=== PATIENT | female | born 1930 | race Caucasian/White ===

== ENCOUNTER 2018-07-18 23:32 | Emergency (ER) | payer MEDICARE, OTHER ==
[~2018-07-18] VITALS: Ht 170.2 cm; Wt 60.3 kg
[~2018-07-18 23:32] MED LIST: ASCO-72 PO; ASPI-482 PO; LEVO25TA4 PO; SIMV40TA3 PO
[2018-07-18 23:34] VITALS: BP 157/67
--- NOTE | 2018-07-18 23:47 | ED.ADGEN ---
Past History Past Medical History: High Cholesterol, Hypothyroid, Other Past Surgical History: Hip Replacement, Hysterectomy, Knee Replacement, Other Alcohol Use: None Drug Use: None Adult General Chief Complaint Chief Complaint Fall HPI HPI 88 years old female who is a detention for rehabilitation due to hip fracture and replacement she was found on the floor will have an accurate time for her fall the patient does not remember how she fell however last time she was seen was 9 PM. Patient complaining of right shoulder pain and right hip pain no any other complaining Review of Systems Review of Systems Constitutional: Denies fever or chills [] Eyes: Denies change in visual acuity, redness, or eye pain [] HENT: Denies nasal congestion or sore throat [] Respiratory: Denies cough or shortness of breath [] Cardiovascular: No additional information not addressed in HPI [] GI: Denies abdominal pain, nausea, vomiting, bloody stools or diarrhea [] : Denies dysuria or hematuria [] Integument: Denies rash or skin lesions [] Neurologic: Denies headache, focal weakness or sensory changes [] Endocrine: Denies polyuria or polydipsia [] All other systems were reviewed and found to be within normal limits, except as documented in this note. Allergies Allergies Allergies Coded Allergies Type Severity Reaction Last Updated Verified Penicillins Adverse Reaction Intermediate 05/22/14 Yes Physical Exam Physical Exam Constitutional: Well developed, well nourished, no acute distress, non-toxic appearance. [] HENT: Normocephalic, atraumatic, bilateral external ears normal, oropharynx moist, no oral exudates, nose normal. [] Eyes: PERRLA, EOMI, conjunctiva normal, no discharge. [] Neck: Normal range of motion, no tenderness, supple, no stridor. [] Cardiovascular:Heart rate regular rhythm, no murmur [] Lungs & Thorax: Bilateral breath sounds clear to auscultation [] Abdomen: Bowel sounds normal, soft, no tenderness, no masses, no pulsatile masses. [] Skin: Warm, dry, no erythema, no rash. [] Back: No tenderness, no CVA tenderness. [] Extremities: Right shoulder tenderness, right hip tenderness Neurologic: Alert and oriented X 3, normal motor function, normal sensory function, no focal deficits noted. [] Psychologic: Affect normal, judgement normal, mood normal. [] EKG EKG [] Radiology/Procedures Radiology/Procedures no acute fracture noticed in shoulder and hip. [] Course & Med Decision Making Course & Med Decision Making Pertinent Labs and Imaging studies reviewed. (See chart for details) no acute fractures noticed, patient will be transferred back to detention for physical therapy and rehabilitation. [] Final Impression Final Impression [] Problems: (1) Fall Qualifiers: Qualified Codes: W19.XXXA - Unspecified fall, initial encounter (2) Contusion of right hip Qualifiers: Qualified Codes: S70.01XA - Contusion of right hip, initial encounter (3) Contusion of shoulder, right Qualifiers: Qualified Codes: S40.011A - Contusion of right shoulder, initial encounter Dragon Disclaimer Dragon Disclaimer This electronic medical record was generated, in whole or in part, using a voice recognition dictation system. SANJIV WILSON MD Jul 18, 2018 23:47
[2018-07-19] MEDS ORDERED: HYDROcodone/APAP 5/325MG 1 TAB TABLET PO ONE (01:00)
--- NOTE | 2018-07-19 01:23 | RAD ---
CT maxillofacial without contrast History: Pain after fall Axial helical images of the face were obtained without contrast. Axial and coronal reconstruction was performed. The nasal septum is mostly midline. The ostiomeatal complexes are narrow but patent. The paranasal sinuses are clear. The visualized osseous structures appear intact. There is soft tissue swelling lateral to the right orbit. Impression: No acute bony abnormality. PQRS Compliance Statement: One or more of the following individualized dose reduction techniques were utilized for this examination: 1. Automated exposure control 2. Adjustment of the mA and/or kV according to patient size 3. Use of iterative reconstruction technique Electronically signed by: Carson Chin III, MD (07/19/2018 1:20 AM) [facility]
--- NOTE | 2018-07-19 02:01 | RAD ---
CT Head W/O Contrast: History: Fall tonight. Pain in head and neck. Bruising to right eye Comparison: none Axial images were obtained without contrast. There is marked diffuse atrophy. There is no mass effect, extraaxial fluid collections or hydrocephalus. There is no gross bleed. Marked, diffuse periventricular and subcortical white matter hypoattenuation is seen. There is no focal loss of lima-white matter distinction to suggest acute ischemia, i.e. stroke. Impression: No acute findings. End impression CT C-Spine without contrast: Clinical History: Fall tonight. Pain in head and neck. Bruising to right eye Technique: Axial helical images of the cervical spine were obtained without contrast, axial coronal and sagittal reconstruction was performed. Findings: There is no loss of vertebral body stature. There is no prevertebral soft tissue swelling. The vertebral bodies are well aligned. The C1-C2 relationship is normal. The visualized osseous structures appear normal. Evaluation of the central canal is limited without contrast. There is multiple posterior disc bulges resulting in flattening of the thecal sac. There does not appear to be gross flattening of the cervical cord. There is marked narrowing of multiple neuroforamen. Impression: No acute findings. Clinical correlation suggested. PQRS Compliance Statement: One or more of the following individualized dose reduction techniques were utilized for this examination: 1. Automated exposure control 2. Adjustment of the mA and/or kV according to patient size 3. Use of iterative reconstruction technique Electronically signed by: Carson Chin III, MD (07/19/2018 1:58 AM) [facility]
--- NOTE | 2018-07-19 09:08 | RAD ---
Right shoulder, 2 views, 07/19/2018: HISTORY: Fall, shoulder pain The bony structures are demineralized. No acute fracture or dislocation is identified. There is mild degenerative change at the AC joint. The subacromial space is narrowed raising the possibility of chronic rotator cuff degeneration/tear. A Port-A-Cath overlies the right upper chest. There are prominent pulmonary markings in the right lung which may be due to fibrosis, although active disease cannot be excluded. Clinical correlation suggested. IMPRESSION: 1. Bony demineralization. 2. Degenerative change. 3. No acute bony abnormality is detected. Electronically signed by: Dudley Hodge MD (07/19/2018 9:05 AM) [facility]
--- NOTE | 2018-07-19 09:13 | RAD ---
Pelvis with right hip, 07/19/2018: HISTORY: Fall, pain Comparison is made to a study from 07/03/2018. The bony structures are demineralized. An internal fixation device is now in place transfixing the intertrochanteric fracture of the right hip evident on the previous exam. The tip of the large screw in the femoral head lies well beneath the articular cortex. There is residual medial displacement of a lesser trochanteric fracture fragment. A bipolar left hip prosthesis remains in place in satisfactory position. There are old healed pubic rami fractures on the left. No new fracture or dislocation is evident. There is moderate degenerative change in the lower lumbar spine. Scattered arterial calcifications are present. IMPRESSION: 1. Demineralization. 2. Internally fixated recent right intertrochanteric fracture. 3. Old healed left pubic bone fractures. 4. Stable left hip prosthesis. 5. No new bony abnormality is detected. Electronically signed by: Dudley Hodge MD (07/19/2018 9:10 AM) [facility]
[2018-07-24] MEDS ORDERED: CYAN-25 PO (16:13)
== END 2018-07-19 03:11 | disposition home or self-care (01) ==
LOC: ER 23:32
DX: S40.011A Contusion of right shoulder, initial encounter (principal); S70.01XA Contusion of right hip, initial encounter; E78.00 Pure hypercholesterolemia, unspecified; E03.9 Hypothyroidism, unspecified; R51 Headache; M54.2 Cervicalgia; Z96.641 Presence of right artificial hip joint; W18.39XA Other fall on same level, initial encounter; Y93.89 Activity, other specified; Y92.89 Other specified places as the place of occurrence of the external cause; Y99.8 Other external cause status
CPT/HCPCS: 70450; 70486; 72125; 73030; 73502; 99284-25

== ENCOUNTER 2018-07-24 08:25 | Inpatient (IN) | payer MEDICARE, OTHER ==
[~2018-07-24] VITALS: Ht 167.6 cm; Wt 69.9 kg
[2018-07-24 09:15] LABS: BASO # 0.1 x10^3/uL (0.0-0.2); BASO % 1 % (0-3); EOS # 0.3 x10^3/uL (0.0-0.7); EOS % 3 % (0-3); HEMATOCRIT 31.6 % (36.0-47.0); HEMOGLOBIN 10.6 g/dL (12.0-15.5); LYMPH # 0.7 x10^3/uL (1.0-4.8); LYMPH % 9 % (24-48); MEAN CORPUSCULAR HEMOGLOBIN 32 pg (25-35); MEAN CORPUSCULAR HGB CONC 34 g/dL (31-37); MEAN CORPUSCULAR VOLUME 95 fL (79-100); MONO # 0.9 x10^3/uL (0.0-1.1); MONO % 11 % (0-9); NEUT # 6.3 x10^3uL (1.8-7.7); NEUT % 77 % (31-73); PLATELET COUNT 526 x10^3/uL (140-400); RED BLOOD COUNT 3.34 x10^6/uL (3.50-5.40); RED CELL DISTRIBUTION WIDTH 17.3 % (11.5-14.5); WHITE BLOOD COUNT 8.2 x10^3/uL (4.0-11.0)
--- NOTE | 2018-07-24 09:15 | PHYS DOC ---
Past History Past Medical History: A-Fib, Anemia, Dementia, GERD, High Cholesterol, Hypertension, Hypothyroid, Other Past Surgical History: Hip Replacement Alcohol Use: None Drug Use: None Adult General Chief Complaint Chief Complaint: ANKLE PROBLEM HPI HPI Patient is a 88 year old female who brought in by EMS because of right ankle pain. Patient had a fall and strike keep fracture 3 weeks ago with hip replacement. Patient is currently in rehabilitation and was started on Levaquin for 2 days ago after chest x-ray showed bronchitis. She also has history of atrial fibrillation and frequent falls and 2 DVTs after her surgery with filter placement. Patient currently taking aspirin. halfway staff reported that patient complaining of right ankle pain since this morning and refused to bear weight. Patient did not have any new injuries. Patient was seen in this emergency room 6 days ago with a fall and injury to right shoulder and right hip with unremarkable x-rays. Patient rated her pain 9/10. Review of Systems Review of Systems Constitutional: Denies fever or chills [] Eyes: Denies change in visual acuity, redness, or eye pain [] HENT: Denies nasal congestion or sore throat [] Respiratory: Denies cough or shortness of breath [] Cardiovascular: No additional information not addressed in HPI [] GI: Denies abdominal pain, nausea, vomiting, bloody stools or diarrhea [] : Denies dysuria or hematuria [] Musculoskeletal: Denies back pain, reports joint pain [] Integument: Denies rash or skin lesions [] Neurologic: Denies headache, focal weakness or sensory changes [] Endocrine: Denies polyuria or polydipsia [] All other systems were reviewed and found to be within normal limits, except as documented in this note. Current Medications Current Medications Current Medications Medications (Trade) Dose Ordered Sig/[facility] Start Time Stop Time Status Last Admin Dose Admin Fentanyl Citrate (Fentanyl 2ml Vial) 25 mcg 1X ONCE 07/24/18 09:30 07/24/18 09:31 Allergies Allergies Allergies Coded Allergies Type Severity Reaction Last Updated Verified Penicillins Adverse Reaction Intermediate 05/22/14 Yes Physical Exam Physical Exam Constitutional: Well nourished, mild acute distress, non-toxic appearance. [] HENT: Normocephalic, old right facial ecchymoses, bilateral external ears normal , oropharynx moist, no oral exudates, nose normal. [] Eyes: PERRLA, EOMI, conjunctiva normal, no discharge. [] Neck: Normal range of motion, no tenderness, supple, no stridor. [] Cardiovascular:Heart rate regular rhythm, no murmur [] Lungs & Thorax: Bilateral breath sounds clear to auscultation [] Abdomen: Bowel sounds normal, soft, no tenderness, no masses, no pulsatile masses. [] Skin: Warm, dry, no erythema, no rash. [] Back: No tenderness, no CVA tenderness. [] Extremities: Right lower extremity DVT increasing of size and mild edema and warm without neurovascular deficit, no ankle tenderness, no cyanosis, no clubbing, ROM intact. Neurologic: Alert and oriented X 2, normal motor function, normal sensory function, no focal deficits noted. [] Psychologic: Affect normal, judgement normal, mood normal. [] Current Patient Data Vital Signs Vital Signs Date Time Temp Pulse Resp B/P (MAP) Pulse Ox O2 Delivery O2 Flow Rate FiO2 07/24/18 08:28 97.9 66 20 98 Room Air EKG EKG [] Radiology/Procedures Radiology/[place] [address] IMAGING REPORT Signed PATIENT: TJ FRANCO ACCOUNT: [id number] : 1930 LOCATION: ER AGE: 88 SEX: F EXAM STATUS: REG ER ORD. PHYSICIAN: SHYAM CANALES MD REASON: cough PROCEDURE: CHEST AP ONLY Portable chest, 07/24/2018: HISTORY: Cough Comparison is made to a study from 07/03/2018. A right Port-A-Cath extends into the superior vena cava. The heart is at the upper limits of normal in size. There is calcific plaquing and tortuosity of the thoracic aorta. Previous studies have shown mild bilateral interstitial opacities suggesting chronic interstitial lung disease. There are mild superimposed peripheral opacities in the left base laterally and laterally in the right mid and lower chest. No pleural fluid is seen. IMPRESSION: Mild patchy pulmonary infiltrates suggesting pneumonia superimposed upon chronic interstitial lung disease. Electronically signed by: Dudley Hodge MD (07/24/2018 9:23 AM) [facility] DICTATED AND SIGNED BY: DUDLEY HODGE MD DATE: 07/24/18916 CC: SHYAM CANALES MD; ETELVINA JOHNSON MD ~ [address] [address] IMAGING REPORT Signed PATIENT: TJ FRANCO ACCOUNT: [id number] : 1930 LOCATION: ER AGE: 88 SEX: F EXAM STATUS: REG ER ORD. PHYSICIAN: SHYAM CANALES MD REASON: pain PROCEDURE: ANKLE RIGHT 3V Right ankle, 3 views, 07/24/2018: HISTORY: Ankle pain, injury The bony structures are demineralized. No acute fracture or dislocation is identified. There is mild degenerative change at the ankle joint. Moderate posterior and inferior calcaneal spurring is present. There is moderate subcutaneous edema. Moderate arterial calcifications are present. IMPRESSION: 1. Demineralization. 2. Degenerative change. 3. No acute bony abnormality is detected. Electronically signed by: Dudley Hodge MD (07/24/2018 9:17 AM) [facility] DICTATED AND SIGNED BY: DUDLEY HODGE MD DATE: 07/24/18914 CC: SHYAM CANALES MD; ETELVINA JOHNSON MD ~ [address] [address] IMAGING REPORT Signed PATIENT: TJ FRANCO ACCOUNT: [id number] : 1930 LOCATION: ER AGE: 88 SEX: F EXAM STATUS: REG ER ORD. PHYSICIAN: SHYAM CANALES MD REASON: pain and edema, h/o DVT PROCEDURE: VENOUS LOWER EXTREMITY RIGHT Examination: Right Lower Extremity Venous Doppler Ultrasound History: History of DVT, history of IVC filter, right hip surgery Comparison: None Procedure: Larios scale, color flow 2D and spectal waveform analysis images are obtained with and without compression in the area of the common femoral vein, superficial femoral vein - femoral vein junction, main femoral vein (superficial femoral vein) and popliteal vein. Veins of the proximal calf are also imaged. Findings: There is echogenicity identified in the distal right femoral vein nonocclusive clot. There is echogenicity/occlusive clot identified in the right popliteal vein. The visualized calf veins on the right are noncompressible likely deep venous thrombosis. No evidence of DVT identified in the common femoral vein and proximal and mid right superficial femoral veins. There is complex appearing fluid collection identified inferior and lateral to the proximal femoral vein measuring 4.9 x 3.6 x 2.2 cm without vascular flow within probably hematoma or complex seroma. IMPRESSION: 1. Nonocclusive deep venous thrombosis identified in the distal right femoral vein. Occlusive deep venous thrombus identified in the right popliteal vein. Deep venous thrombosis in the visualized right calf veins. 2. A 4.9 cm complex fluid collection identified in the soft tissue inferior lateral to the proximal femoral vein could be hematoma or complex seroma. Follow-up to resolution. Electronically signed by: Marcin Stewart MD (07/24/2018 10:43 AM) [place] [id number] DICTATED AND SIGNED BY: MARCIN STEWART MD DATE: 07/24/18 1036 CC: SHYAM CANALES MD; ETELVINA JOHNSON MD ~ Course & Med Decision Making Course & Med Decision Making Pertinent Labs and Imaging studies reviewed. (See chart for details) Evaluation of patient in ER showed 88-year-old female patient brought in from retirement because of complaining of right ankle pain. Patient already diagnosed with 2 DVTs in right lower extremity without taking anticoagulation because of frequent falls. Ankle X-ray did not show fracture. Right lower extremity venous ultrasound showed DVT in femoral and popliteal vein and seroma or hematoma at the site of surgery. Have cough and O2 sats of 95% on room air and chest x-ray showed infiltration. Patient currently taking oral Levaquin and blood culture was obtained and patient started on IV Levaquin and vancomycin. Dr. Johnson accepted admission at 0 945. Dragon Disclaimer Dragon Disclaimer This electronic medical record was generated, in whole or in part, using a voice recognition dictation system. Departure Departure: Impression: Primary Impression: HCAP (healthcare-associated pneumonia) Additional Impressions: Renal insufficiency Anemia Elevated liver enzymes History of DVT (deep vein thrombosis) History of atrial fibrillation Frequent falls Acute right ankle pain History of right hip replacement Seroma after procedure Disposition: 09 ADMITTED INPATIENT (at 0 946) Admitting Physician: Etelvina Johnson (accepted admission at 0945) Condition: IMPROVED Referrals: ETELVINA JOHNSON MD (PCP) Problem Qualifiers SHYAM CANALES MD Jul 24, 2018 09:15
--- NOTE | 2018-07-24 09:20 | RAD ---
Right ankle, 3 views, 07/24/2018: HISTORY: Ankle pain, injury The bony structures are demineralized. No acute fracture or dislocation is identified. There is mild degenerative change at the ankle joint. Moderate posterior and inferior calcaneal spurring is present. There is moderate subcutaneous edema. Moderate arterial calcifications are present. IMPRESSION: 1. Demineralization. 2. Degenerative change. 3. No acute bony abnormality is detected. Electronically signed by: Dudley Hodge MD (07/24/2018 9:17 AM) [facility]
[2018-07-24 09:25] LABS: ALBUMIN 3.2 g/dL (3.4-5.0); ALBUMIN/GLOBULIN RATIO 0.8 (1.0-1.7); CALCIUM 8.8 mg/dL (8.5-10.1); CREATININE 1.2 mg/dL (0.6-1.0); GFR 42.6; MAGNESIUM 2.3 mg/dL (1.8-2.4); POTASSIUM 4.1 mmol/L (3.5-5.1); TOTAL BILIRUBIN 0.6 mg/dL (0.2-1.0); TOTAL PROTEIN 7.1 g/dL (6.4-8.2)
--- NOTE | 2018-07-24 09:27 | RAD ---
Portable chest, 07/24/2018: HISTORY: Cough Comparison is made to a study from 07/03/2018. A right Port-A-Cath extends into the superior vena cava. The heart is at the upper limits of normal in size. There is calcific plaquing and tortuosity of the thoracic aorta. Previous studies have shown mild bilateral interstitial opacities suggesting chronic interstitial lung disease. There are mild superimposed peripheral opacities in the left base laterally and laterally in the right mid and lower chest. No pleural fluid is seen. IMPRESSION: Mild patchy pulmonary infiltrates suggesting pneumonia superimposed upon chronic interstitial lung disease. Electronically signed by: Dudley Hodge MD (07/24/2018 9:23 AM) [facility]
[2018-07-24] MEDS ORDERED: IPRATRPIUM/ALBUTEROL 0.5/2.5MG 3 ML NEBU. NEB ONE (10:00)
--- NOTE | 2018-07-24 10:46 | RAD ---
Examination: Right Lower Extremity Venous Doppler Ultrasound History: History of DVT, history of IVC filter, right hip surgery Comparison: None Procedure: Larios scale, color flow 2D and spectal waveform analysis images are obtained with and without compression in the area of the common femoral vein, superficial femoral vein - femoral vein junction, main femoral vein (superficial femoral vein) and popliteal vein. Veins of the proximal calf are also imaged. Findings: There is echogenicity identified in the distal right femoral vein nonocclusive clot. There is echogenicity/occlusive clot identified in the right popliteal vein. The visualized calf veins on the right are noncompressible likely deep venous thrombosis. No evidence of DVT identified in the common femoral vein and proximal and mid right superficial femoral veins. There is complex appearing fluid collection identified inferior and lateral to the proximal femoral vein measuring 4.9 x 3.6 x 2.2 cm without vascular flow within probably hematoma or complex seroma. IMPRESSION: 1. Nonocclusive deep venous thrombosis identified in the distal right femoral vein. Occlusive deep venous thrombus identified in the right popliteal vein. Deep venous thrombosis in the visualized right calf veins. 2. A 4.9 cm complex fluid collection identified in the soft tissue inferior lateral to the proximal femoral vein could be hematoma or complex seroma. Follow-up to resolution. Electronically signed by: Marcin Monsalve MD (07/24/2018 10:43 AM) [place] [id number]
[2018-07-24] MEDS ORDERED: VANCOMYCIN 1.75 GM in IV NORMAL SALINE 500ML 500 ML IV ONE (11:00)
[2018-07-24] MEDS: IV NORMAL SALINE 1,000ML 1,000 ML IV SCH ×2 (11:01→18:36)
[2018-07-24 15:36] VITALS: BP 141/56
[2018-07-24] MEDS: LIDOCAINE (700MG/PATCH) PATCH. TD SCH (16:00)
[2018-07-24] MEDS ORDERED: PANT40TA3 PO (16:13)
[2018-07-24] MEDS ORDERED: LEVO50TA5 PO (16:13)
[2018-07-24] MEDS ORDERED: FERR325T14 PO (16:13)
[2018-07-24] MEDS ORDERED: POLY17PO5 PO (16:13)
[2018-07-24] MEDS ORDERED: CITA10TA8 PO (16:13)
[2018-07-24] MEDS ORDERED: SENN-80 PO (16:13)
[2018-07-24] MEDS ORDERED: CHOL500016 PO (16:13)
[2018-07-24] MEDS ORDERED: DRON2.5C PO (16:13)
[2018-07-24] MEDS ORDERED: MEMA10TA PO (16:13)
[2018-07-24] MEDS ORDERED: ATOR20TA58 PO (16:13)
[2018-07-24] MEDS ORDERED: CALCIUM CARBONATE PO (16:13)
[2018-07-24] MEDS ORDERED: CYAN10005 PO (16:13)
[2018-07-24] MEDS ORDERED: MULT1TAB52 PO (16:13)
[2018-07-24] MEDS ORDERED: ALBU0.63 NEB (16:21)
[2018-07-24] MEDS ORDERED: MIRT15TA PO (16:21)
[2018-07-24] MEDS ORDERED: TRAM50TA PO (16:21)
[2018-07-24] MEDS ORDERED: GUAI473L15 PO (16:21)
[2018-07-24] MEDS ORDERED: ONDA4TAB7 PO (16:21)
[2018-07-24] MEDS ORDERED: GUAI-108 PO (16:21)
[2018-07-24] MEDS ORDERED: ASPI325T8 PO (16:21)
[2018-07-24] MEDS ORDERED: METO25TA4 PO (16:23)
[2018-07-24] MEDS ORDERED: AMIO200T4 PO (16:23)
[2018-07-24] MEDS ORDERED: LISI10TA2 PO (16:23)
[2018-07-24] MEDS: PATCH REMOVAL. MC SCH (16:47)
[2018-07-24] MEDS ORDERED: traMADol 50 MG TABLET PO PRN (18:00)
[2018-07-24] MEDS ORDERED: NON FORMULARY ITEM (Albuterol Sulfate (Albuterol Sulfate Neb Soln) 1 VIAL) NEB PRN (18:00)
[2018-07-24 18:09] LABS: BILIRUBIN,URINE NEG (NEG); CLARITY,URINE CLEAR; COLOR,URINE YELLOW; GLUCOSE,URINE NEG (NEG); UROBILINOGEN,URINE 0.2 mg/dL (0.2 mg/dL)
[2018-07-24 18:10] LABS: BACTERIA,URINE FEW /HPF (0-FEW); NITRITE,URINE NEG (NEG); RBC,URINE OCC /HPF (0-2); SQUAMOUS EPITHELIAL CELL,UR FEW /LPF; WBC,URINE OCC /HPF (0-4)
[2018-07-24] MEDS ORDERED: ALBUTEROL SULFATE 2.5 MG/3 ML NEBU. NEB PRN ×2 (18:15→18:30)
[2018-07-24] MEDS ORDERED: VANCOMYCIN PER PHARMACY MC PRN (18:15)
[2018-07-24] MEDS ORDERED: ONDANSETRON ODT 4 MG TAB.RAPDIS PO SCH (18:30)
--- NOTE | 2018-07-24 18:54 | HP ---
ADMIT DATE: 07/24/2018 HISTORY OF PRESENT ILLNESS: The patient is an 88-year-old female patient, a resident at [facility], was brought to the Emergency Room because of right ankle pain. She apparently had a fall and strike about 3 weeks ago for which she underwent hip replacement. She is currently at [facility] and was started on Levaquin 2 days ago for what seemed to be pneumonia on a chest x-ray done there. She apparently has a history of atrial fibrillation, frequent falls and 2 DVTs after her surgery. She underwent an inferior vena cava filter placement. She is on aspirin. Nursing staff reported that the patient was complaining of right ankle pain since the morning and refused to bear weight. She did not have any injuries. She was seen in the Emergency Room about 6 days ago with a fall and injury to the right shoulder and right hip with unremarkable x-rays. She rated her pain this morning as 9/10. She apparently was extensively investigated in the Emergency Room and she had had a chest x-ray, which showed that she has mild patchy pulmonary infiltrate suggesting pneumonia superimposed upon chronic interstitial lung disease. X-ray of her right ankle joint showed that she has marked demineralization, degenerative changes with no acute bony abnormalities detected. She did have right lower extremity venous Doppler ultrasound, which showed that she has nonocclusive deep venous thrombosis identified in the distal right femoral vein, occlusive deep venous thrombus identified in the right popliteal vein, deep venous thrombosis in the visualized right calf veins. She also has a 4.9 cm complex fluid collection identified in the soft tissue inferior and lateral to the proximal femoral vein, could be a hematoma or complex seroma. The patient was admitted to be treated for healthcare-associated pneumonia. PAST MEDICAL HISTORY: Significant for hypertension, hyperlipidemia, atrial fibrillation, rate controlled, not anticoagulated. She is known to have hypothyroidism, osteoarthritis and anemia as well as dementia. PAST SURGICAL HISTORY: Significant for left hip surgery, right hip nailing, right inguinal hernia repair, bladder sling, and left knee replacement. FAMILY HISTORY: Noncontributory. SOCIAL HISTORY: She is . Her has recently. She is currently residing at [facility]. She does not smoke, drink alcohol or use recreational drugs. ALLERGIES: She is allergic to PENICILLIN, SULFAMETHOXAZOLE AND TRIMETHOPRIM. MEDICATIONS: She is currently on following medications: She is on albuterol sulfate by nebulizer 4 times a day, ferrous sulfate 325 mg daily, amiodarone 200 mg once a day, atorvastatin 20 mg at bedtime, metoprolol tartrate 25 mg once a day, lisinopril 10 mg once a day, aspirin 81 mg once a day and aspirin 325 mg twice a day, tramadol 50 mg every 6 hours, Celexa 10 mg once a day, mirtazapine 22.5 mg daily. She is on Namenda 10 mg twice a day and guaifenesin/codeine phosphate cough syrup 5 mL every 4 hours. She is on Mucinex extended release with dextromethorphan twice a day, polyethylene glycol 17 grams daily, senna 1 tablet once a day, ondansetron 4 mg every 6 hours, dronabinol 2.5 mg twice a day, Protonix 40 mg daily, levothyroxine sodium 50 mcg once a day, cyanocobalamin 1000 mcg daily, ascorbic acid 500 mg once a day, cholecalciferol 5000 international units once a day, multivitamin 1 tablet once a day, and calcium carbonate 1500 mg p.o. daily. REVIEW OF SYSTEMS: As per history of present illness. PHYSICAL EXAMINATION: GENERAL: On arrival to the Emergency Room, the patient looked pale, but no jaundice, cyanosis, or thyromegaly. No jugular venous distension. No limb edema. VITAL SIGNS: Her heart rate was 66, blood pressure was 167/53, temperature was 97.9, respiratory rate 20, and oxygen saturation was 98% on room air. HEAD, EYES, EARS, NOSE AND THROAT: Showed normocephalic, atraumatic. NECK: Supple. HEART: Showed normal first and second sounds. No gallop, rub or murmur. CHEST: Clear to auscultation. No crepitation or rhonchi. ABDOMEN: Distended, soft, nontender. NEUROLOGIC: She is awake, alert, responding appropriately. All cranial nerves intact. EXTREMITIES: She moves all extremities without difficulty. SKIN: She has bruises on her right side of the face. LABORATORY DATA: This morning showed a serum sodium 134, potassium 4.1, chloride 98, bicarbonate 26, anion gap of 10, BUN 25, creatinine 1.2, estimated GFR was 42 mL per minute. Her glucose 106, calcium was 8.8, magnesium was 2.3. Total bilirubin normal. AST, ALT, alkaline phosphatase are elevated. Her beta natriuretic peptide was 761. Total protein was 7.1, albumin was 3.2. Her white cell count was 8200, hemoglobin 10.6, hematocrit 31.6, MCV 95, and platelet count 526,000. ASSESSMENT: This is an 88-year-old female patient, a resident at [facility] who was admitted with pain in her right ankle joint. X-ray showed no evidence of fracture or dislocation. Chest x-ray showed that she has mild patchy pulmonary infiltrate suggesting pneumonia superimposed upon chronic interstitial lung disease. She is known to have right lower extremity deep vein thrombosis for which she has an inferior vena cava filter, continued with DVT prophylaxis with aspirin 325 mg twice a day. PLAN: Plan is to continue with IV antibiotic for healthcare-associated pneumonia, as she is allergic to PENICILLIN. Continue IV levofloxacin as well as vancomycin. We will resume all her home medication. Her liver enzymes are abnormal, so I will hold her statins. We will repeat all her lab work tomorrow. We will consult physical and occupational therapy, as she has had surgery on her hip on 07/03/2018. JOHN MAZARIEGOS MD DR: CRISTO/dayan JOB#: [id number] / [id number]
[2018-07-24 19:07] VITALS: BP 140/63
[2018-07-24] MEDS: LACTOBACILLUS RHAMNOSUS GG 1 CAPSULE. PO SCH (19:41)
[2018-07-24] MEDS: METOPROLOL TART IMMED RELEASE 25 MG TABLET PO SCH (19:41)
[2018-07-24] MEDS: MEMANTINE 10 MG TABLET. PO SCH (20:45)
[2018-07-24] MEDS ORDERED: ASPIRIN 325 MG TABLET PO SCH (21:00)
[2018-07-24] MEDS: MEROPENEM 500 MG in IV NORMAL SALINE 50ML 50 ML IV SCH (21:41)
[2018-07-24 22:46] VITALS: BP 147/87
[2018-07-25] MEDS: IV NORMAL SALINE 1,000ML 1,000 ML IV SCH (01:48)
[2018-07-25] MEDS: MEROPENEM 500 MG in IV NORMAL SALINE 50ML 50 ML IV SCH ×3 (05:03→22:01)
[2018-07-25] MEDS: LEVOTHYROXINE 50 MCG TABLET PO SCH (05:04)
[2018-07-25 05:16] VITALS: BP 152/64
[2018-07-25 06:56] LABS: ALBUMIN 2.5 g/dL (3.4-5.0); ALBUMIN/GLOBULIN RATIO 0.8 (1.0-1.7); CALCIUM 7.9 mg/dL (8.5-10.1); CREATININE 0.9 mg/dL (0.6-1.0); GFR 59.4; POTASSIUM 3.8 mmol/L (3.5-5.1); TOTAL BILIRUBIN 0.6 mg/dL (0.2-1.0); TOTAL PROTEIN 5.6 g/dL (6.4-8.2)
[2018-07-25 07:00] VITALS: BP 122/53
[2018-07-25 07:01] LABS: BASO % 1 % (0-3); EOS # 0.2 x10^3/uL (0.0-0.7); EOS % 3 % (0-3); HEMATOCRIT 25.8 % (36.0-47.0); HEMOGLOBIN 8.7 g/dL (12.0-15.5); LYMPH % 15 % (24-48); MEAN CORPUSCULAR HEMOGLOBIN 32 pg (25-35); MEAN CORPUSCULAR HGB CONC 34 g/dL (31-37); MEAN CORPUSCULAR VOLUME 94 fL (79-100); MONO # 0.7 x10^3/uL (0.0-1.1); MONO % 10 % (0-9); NEUT % 72 % (31-73); PLATELET COUNT 405 x10^3/uL (140-400); RED BLOOD COUNT 2.73 x10^6/uL (3.50-5.40); WHITE BLOOD COUNT 6.9 x10^3/uL (4.0-11.0)
[2018-07-25] MEDS: SENNOSIDES 8.6 MG TABLET PO SCH (09:00)
[2018-07-25] MEDS: ASPIRIN 325 MG TABLET PO SCH (09:06)
[2018-07-25] MEDS: POLYETHYLENE GLYCOL 3350 17 GM PACKET. PO SCH (09:06)
[2018-07-25] MEDS: LISINOPRIL 10 MG TABLET PO SCH (09:08)
[2018-07-25] MEDS: PANTOPRAZOLE 40 MG TABLET. PO SCH (09:08)
[2018-07-25] MEDS: ASCORBIC ACID 500 MG TABLET PO SCH (09:08)
[2018-07-25] MEDS: LACTOBACILLUS RHAMNOSUS GG 1 CAPSULE. PO SCH ×2 (09:08→22:01)
[2018-07-25] MEDS: CHOLECALCIFEROL (VITAMIN D3) 1,000 UNIT TABLET PO SCH (09:08)
[2018-07-25] MEDS: METOPROLOL TART IMMED RELEASE 25 MG TABLET PO SCH ×2 (09:09→22:01)
[2018-07-25] MEDS: AMIODARONE HCL 200 MG TABLET PO SCH (09:10)
[2018-07-25] MEDS: FERROUS SULFATE 325 MG TABLET. PO SCH (09:14)
[2018-07-25] MEDS: MEMANTINE 10 MG TABLET. PO SCH ×2 (09:15→22:02)
[2018-07-25] MEDS: MIRTAZAPINE 15 MG TABLET PO SCH (09:15)
[2018-07-25] MEDS: LIDOCAINE (700MG/PATCH) PATCH. TD SCH (09:15)
[2018-07-25] MEDS: CALCIUM CARBONATE 500 MG TABLET PO SCH (09:16)
[2018-07-25] MEDS: MULTIVITAMIN with MINERAL TABLET. PO SCH (09:16)
[2018-07-25] MEDS: CYANOCOBALAMIN (VITAMIN B-12) 1,000 MCG TABLET. PO SCH (09:16)
[2018-07-25] MEDS: CITALOPRAM 10 MG TABLET. PO SCH (09:16)
[2018-07-25] MEDS: DRONABINOL 2.5 MG CAPSULE PO SCH ×2 (11:53→17:36)
[2018-07-25 12:00] VITALS: BP 120/51
[2018-07-25] MEDS ORDERED: VANCOMYCIN 1 GM in IV NORMAL SALINE 250ML 250 ML IV SCH (15:00)
[2018-07-25 15:45] VITALS: BP 145/74
[2018-07-25] MEDS ORDERED: ONDANSETRON ODT 4 MG TAB.RAPDIS PO PRN (18:30)
[2018-07-25 19:20] VITALS: BP 137/45
[2018-07-25] MEDS: PATCH REMOVAL. MC SCH (21:00)
[2018-07-25 22:43] VITALS: BP 133/78
[2018-07-26 03:23] VITALS: BP 149/70
[2018-07-26] MEDS: LEVOTHYROXINE 50 MCG TABLET PO SCH (05:33)
[2018-07-26] MEDS: MEROPENEM 500 MG in IV NORMAL SALINE 50ML 50 ML IV SCH ×3 (05:33→22:28)
[2018-07-26 05:37] VITALS: BP 144/70
--- NOTE | 2018-07-26 06:08 | PN ---
DATE: 07/25/2018 SUBJECTIVE: The patient is sitting in her recliner, definitely more awake and alert. Apparently, she has eaten more today and has managed to walk with a walker for short distance within her room. OBJECTIVE: GENERAL: On examining her, she was pale, no jaundice, cyanosis, or thyromegaly. No jugular venous distension. No limb edema. VITAL SIGNS: Her heart rate was 63, blood pressure was 120/50. Her temperature was 98.8, respiratory rate was 18 and oxygen saturation was 98%. HEAD, EYES, EARS, NOSE AND THROAT: Normocephalic, atraumatic. NECK: Supple. HEART: Showed normal first and second sounds. No gallop, rub or murmur. CHEST: Clear to auscultation. Anteriorly, she has crepitation, more on the right side compared to the left. I could not appreciate any rhonchi. ABDOMEN: Distended, soft, and nontender. No guarding or rigidity. No organomegaly. Hernial orifice intact. Bowel sounds normal. NEUROLOGIC: She was definitely more awake, alert, responding appropriately. Cranial nerves intact. She moves extremities without difficulty. Her intake and output are incompletely recorded. LABORATORY DATA: As of this morning showed a white cell count of 6900, hemoglobin 8.7, hematocrit 25.8, MCV 94 and platelet count of 405,000. Her chemistry showed a serum sodium 139, potassium 3.8, chloride 105, bicarbonate 25, anion gap of 9, BUN 15, creatinine 0.9, estimated GFR was 59 mL per minute. Her glucose was 128, calcium was 7.9. Total bilirubin, AST, ALT, alkaline phosphatase elevated, but trending down. Her total protein was 5.6, albumin was 2.5 and urinalysis was essentially unremarkable. Her chest x-ray, she has mild patchy pulmonary infiltrate suggesting pneumonia superimposed upon chronic interstitial lung disease. ASSESSMENT: 1. Healthcare-associated pneumonia for which she continues to be on antibiotic in the form of vancomycin as well as meropenem as she is allergic to penicillin. 2. She has a right heel deep tissue injury. 3. The patient has right hip fracture, status post open reduction and internal fixation, right lower extremity deep vein thrombosis, status post IVC filter. She has transaminitis, the cause of which is not clear; however, I did discontinue her statins and the liver enzymes are trending down. Her hemoglobin and hematocrit dropped down from 10.6 and 31 to 8.7 and 25, which could be dilutional. PLAN: The plan is to continue with IV antibiotic, continue with Marinol as an appetite stimulant. Continue with the aspirin 325 mg twice a day for DVT prophylaxis. Continue with physical and occupational therapy. JOHN MAZARIEGOS MD DR: CRISTO/dayan JOB#: [id number] / [id number]
[2018-07-26 06:45] LABS: BASO # 0.1 x10^3/uL (0.0-0.2); BASO % 1 % (0-3); EOS # 0.4 x10^3/uL (0.0-0.7); EOS % 6 % (0-3); HEMATOCRIT 26.1 % (36.0-47.0); HEMOGLOBIN 8.7 g/dL (12.0-15.5); LYMPH % 14 % (24-48); MEAN CORPUSCULAR HEMOGLOBIN 32 pg (25-35); MEAN CORPUSCULAR HGB CONC 34 g/dL (31-37); MEAN CORPUSCULAR VOLUME 94 fL (79-100); MONO # 0.6 x10^3/uL (0.0-1.1); MONO % 9 % (0-9); NEUT # 5.1 x10^3uL (1.8-7.7); NEUT % 71 % (31-73); PLATELET COUNT 354 x10^3/uL (140-400); RED BLOOD COUNT 2.77 x10^6/uL (3.50-5.40); RED CELL DISTRIBUTION WIDTH 17.3 % (11.5-14.5); WHITE BLOOD COUNT 7.2 x10^3/uL (4.0-11.0)
[2018-07-26 06:57] LABS: ALBUMIN 2.3 g/dL (3.4-5.0); ALBUMIN/GLOBULIN RATIO 0.9 (1.0-1.7); CALCIUM 7.7 mg/dL (8.5-10.1); CREATININE 0.6 mg/dL (0.6-1.0); GFR 94.8; POTASSIUM 4.4 mmol/L (3.5-5.1); TOTAL BILIRUBIN 0.5 mg/dL (0.2-1.0)
[2018-07-26] MEDS: CHOLECALCIFEROL (VITAMIN D3) 1,000 UNIT TABLET PO SCH (08:58)
[2018-07-26] MEDS: LISINOPRIL 10 MG TABLET PO SCH (08:58)
[2018-07-26] MEDS: CYANOCOBALAMIN (VITAMIN B-12) 1,000 MCG TABLET. PO SCH (08:58)
[2018-07-26] MEDS: MULTIVITAMIN with MINERAL TABLET. PO SCH (08:59)
[2018-07-26] MEDS: METOPROLOL TART IMMED RELEASE 25 MG TABLET PO SCH ×2 (08:59→21:00)
[2018-07-26] MEDS: LACTOBACILLUS RHAMNOSUS GG 1 CAPSULE. PO SCH ×2 (08:59→22:27)
[2018-07-26] MEDS: SENNOSIDES 8.6 MG TABLET PO SCH (08:59)
[2018-07-26] MEDS: ASPIRIN 325 MG TABLET PO SCH (08:59)
[2018-07-26] MEDS: CALCIUM CARBONATE 500 MG TABLET PO SCH (08:59)
[2018-07-26] MEDS: PANTOPRAZOLE 40 MG TABLET. PO SCH (08:59)
[2018-07-26] MEDS: ASCORBIC ACID 500 MG TABLET PO SCH (08:59)
[2018-07-26] MEDS: FERROUS SULFATE 325 MG TABLET. PO SCH ×2 (08:59→22:28)
[2018-07-26] MEDS: POLYETHYLENE GLYCOL 3350 17 GM PACKET. PO SCH (09:00)
[2018-07-26] MEDS: MIRTAZAPINE 15 MG TABLET PO SCH (09:00)
[2018-07-26] MEDS: AMIODARONE HCL 200 MG TABLET PO SCH (09:00)
[2018-07-26] MEDS: CITALOPRAM 10 MG TABLET. PO SCH (09:01)
[2018-07-26] MEDS: MEMANTINE 10 MG TABLET. PO SCH ×2 (09:01→22:28)
[2018-07-26] MEDS: LIDOCAINE (700MG/PATCH) PATCH. TD SCH (09:02)
[2018-07-26 11:17] VITALS: BP 157/84
[2018-07-26] MEDS: DRONABINOL 2.5 MG CAPSULE PO SCH ×2 (11:33→16:41)
--- NOTE | 2018-07-26 13:47 | RAD ---
EXAM: CHEST 1 VIEW History: Shortness of breath, cough COMPARISON: 07/24/2018 TECHNIQUE: Single portable radiograph of the chest FINDINGS: The cardiac silhouette is unremarkable. Right-sided Port-A-Cath is identified. There is mild prominent appearing bilateral peripheral interstitial lung markings likely chronic interstitial changes similar to prior exam. IMPRESSION: Mild prominent appearing bilateral interstitial lung markings particularly in the periphery of the lungs probably chronic interstitial changes similar to prior exam Electronically signed by: Marcin Monsalve MD (07/26/2018 1:44 PM) [place] [id number]
[2018-07-26 16:19] VITALS: BP 166/58
--- NOTE | 2018-07-26 20:27 | PN ---
DATE: 07/26/2018 SUBJECTIVE: The patient is sitting comfortably eating her lunch, in no apparent distress. On questioning her, she denied any complaints. She said that she has felt very well. Her oxygen saturation was 97% on room air. However, the nursing staff states that she takes 2-person assist to get her up and walk. OBJECTIVE: GENERAL: When I examined her this afternoon, she looked pale. No jaundice, cyanosis, or thyromegaly. No jugular venous distension. No lower limb edema. VITAL SIGNS: Her heart rate was 58, blood pressure was 157/84, temperature was 98.5, respiratory rate was 18, and oxygen saturation was 95% on 2 L of oxygen. HEAD, EYES, EARS, NOSE, AND THROAT: Showed normocephalic, atraumatic. NECK: Supple. HEART: Showed normal first and second sounds. No gallop, rub, or murmur. CHEST: Clear to auscultation. No crepitation or rhonchi. ABDOMEN: Distended, soft, nontender. NEUROLOGIC: She was somewhat hard of hearing, but otherwise all cranial nerves were intact. She moved extremities without difficulty, however she required 2-person assist to get out of the bed to walk. LABORATORY DATA: Her lab work this morning showed white cell count 7200, hemoglobin 8.7, hematocrit 26, MCV 94, and platelet count 354,000. Her chemistry showed serum sodium 136, potassium 4.4, chloride 104, bicarbonate 21, anion gap of 11, BUN 14, creatinine 0.6, estimated GFR was 95 mL/min. Her glucose was 104, calcium was 7.7. Total bilirubin is normal. AST, ALT, alkaline phosphatase elevated, but trending down. Her total protein was 5 g/dL and albumin was only 2.3. So far, her blood cultures are negative. ASSESSMENT: 1. Healthcare-associated pneumonia, for which she continues to be on antibiotic in the form of vancomycin as well as meropenem. SHE IS ALLERGIC TO PENICILLIN. 2. She has right heel deep tissue injury. 3. The patient has right hip fracture, status post open reduction and internal fixation. 4. Right lower extremity deep vein thrombosis, status post IVC filter. 5. Transaminitis, cause of which is not clear. I did discontinue her statin and liver enzymes are trending down. 6. Her hemoglobin and hematocrit are trending down, however these were stable over the last 48 hours. PLAN: My plan is to discontinue vancomycin as the blood culture was negative. Continue with meropenem. I will order a chest x-ray. We we will decide on further management accordingly. JOHN MAZARIEGOS MD DR: CRISTO/dayan JOB#: [id number] / [id number]
[2018-07-26] MEDS: PATCH REMOVAL. MC SCH (21:00)
[2018-07-26 22:45] VITALS: BP 144/66
[2018-07-27] MEDS: MEROPENEM 500 MG in IV NORMAL SALINE 50ML 50 ML IV SCH (06:00)
[2018-07-27] MEDS: LEVOTHYROXINE 50 MCG TABLET PO SCH (06:29)
[2018-07-27 07:00] VITALS: BP 148/64
[2018-07-27 07:25] VITALS: BP 148/61
[2018-07-27] MEDS: METOPROLOL TART IMMED RELEASE 25 MG TABLET PO SCH (08:00)
[2018-07-27] MEDS: CHOLECALCIFEROL (VITAMIN D3) 1,000 UNIT TABLET PO SCH (08:01)
[2018-07-27] MEDS: LISINOPRIL 10 MG TABLET PO SCH (08:01)
[2018-07-27] MEDS: MULTIVITAMIN with MINERAL TABLET. PO SCH (08:01)
[2018-07-27] MEDS: CYANOCOBALAMIN (VITAMIN B-12) 1,000 MCG TABLET. PO SCH (08:01)
[2018-07-27] MEDS: ASPIRIN 325 MG TABLET PO SCH (08:01)
[2018-07-27] MEDS: AMIODARONE HCL 200 MG TABLET PO SCH (08:01)
[2018-07-27] MEDS: FERROUS SULFATE 325 MG TABLET. PO SCH (08:02)
[2018-07-27] MEDS: CITALOPRAM 10 MG TABLET. PO SCH (08:02)
[2018-07-27] MEDS: SENNOSIDES 8.6 MG TABLET PO SCH (08:02)
[2018-07-27] MEDS: MIRTAZAPINE 15 MG TABLET PO SCH (08:02)
[2018-07-27] MEDS: ASCORBIC ACID 500 MG TABLET PO SCH (08:02)
[2018-07-27] MEDS: PANTOPRAZOLE 40 MG TABLET. PO SCH (08:02)
[2018-07-27] MEDS: LACTOBACILLUS RHAMNOSUS GG 1 CAPSULE. PO SCH (08:02)
[2018-07-27] MEDS: CALCIUM CARBONATE 500 MG TABLET PO SCH (08:02)
[2018-07-27] MEDS: POLYETHYLENE GLYCOL 3350 17 GM PACKET. PO SCH (08:03)
[2018-07-27] MEDS: MEMANTINE 10 MG TABLET. PO SCH (08:03)
[2018-07-27] MEDS: LIDOCAINE (700MG/PATCH) PATCH. TD SCH (08:03)
[2018-07-27 11:45] VITALS: BP 117/62
[2018-07-27] MEDS: DRONABINOL 2.5 MG CAPSULE PO SCH (11:52)
--- NOTE | 2018-07-28 00:51 | DS ---
DATE OF DISCHARGE: 07/27/2018 HOSPITAL COURSE: The patient is an 88-year-old female patient, a resident at [place], who was admitted through the Emergency Room with pain in her right ear, right ankle joint; however, on extensive evaluation in the Emergency Room, she has had chest x-ray that showed she has mild patchy pulmonary infiltrate suggesting pneumonia superimposed on chronic interstitial lung disease. X-ray of her right ankle showed marked demineralization, degenerative changes, no acute bony abnormalities. She had left and right lower extremity venous ultrasound, which showed that she has nonocclusive deep vein thrombus identified in the distal right femoral vein and occlusive deep venous thrombus in the right popliteal vein. The patient was admitted and treated for healthcare-associated pneumonia. SHE IS ALLERGIC TO PENICILLIN. She was treated with IV vancomycin as well as meropenem and she did actually very well. She continued to have some cough, but she has been afebrile, hemodynamically stable. Her white cell count was normal and therefore, a decision was made. She is more awake, alert, continued to require 2-person assist for transfer from bed to chair or to walk and therefore, a decision was made to discharge her back to [facility] to continue the process of rehabilitation. PHYSICAL EXAMINATION: GENERAL: When I saw her this afternoon, she looked well and was clearly in no apparent respiratory distress. She was pale, but no jaundice, cyanosis, or thyromegaly. No jugular venous distension. No limb edema. VITAL SIGNS: Her heart rate was 69, blood pressure was 117/62, temperature was 98, respiratory rate was 18 and oxygen saturation was 95%. HEAD, EYES, EARS, NOSE AND THROAT: Showed normocephalic, atraumatic. NECK: Supple. HEART: Showed normal first and second heart sounds. No gallop, rub or murmur. CHEST: Clear to auscultation. No crepitation or rhonchi. ABDOMEN: Distended, soft, nontender. NEUROLOGIC: She is definitely more awake, alert, responding appropriately. Cranial nerves intact. She moves extremities without difficulty. She ambulates with a walker with assistance. Her intake over the last 24 hours was 1020, output was 250. LABORATORY DATA: Her lab work showed a white cell count was 7200, hemoglobin 8.7, hematocrit 26, MCV 94 and platelet count of 354,000. Her chemistry showed a serum sodium 136, potassium 4.4, chloride 104, bicarbonate 21, anion gap of 11, BUN 14, creatinine 0.6, estimated GFR was 94 mL per minute. Her glucose was 104, calcium was 7.7. Her bilirubin is normal. AST, ALT, and alkaline phosphatase are elevated, but trending down after I held her simvastatin. She was discharged to [place] to continue with the Levaquin 750 mg every 48 hours x 3 doses. Continue with all other medications. We will hold her simvastatin as she has markedly elevated liver enzymes. FINAL DISCHARGE DIAGNOSES: Healthcare-associated pneumonia; right hip fracture, status post open reduction and internal fixation; and atrial fibrillation. JOHN MAZARIEGOS MD DR: CRISTO/dayan JOB#: [id number] / [id number]
[2018-07-28] MEDS ORDERED: levoFLOXacin 750 MG TABLET PO SCH (06:00)
[2018-08-02] MEDS ORDERED: CITALOPRAM 10 MG TABLET. PO SCH (09:00)
== END 2018-07-27 15:33 | DRG 193 ==
LOC: ER 08:25 → ICU 11:53
PROVIDERS: ADMIT Internal Medicine; ATTEND Internal Medicine
DX: J18.9 Pneumonia, unspecified organism (principal); N17.0 Acute kidney failure with tubular necrosis; I82.411 Acute embolism and thrombosis of right femoral vein; I82.431 Acute embolism and thrombosis of right popliteal vein; D64.9 Anemia, unspecified; I10 Essential (primary) hypertension; M19.90 Unspecified osteoarthritis, unspecified site; E03.9 Hypothyroidism, unspecified; Z96.641 Presence of right artificial hip joint; Z96.652 Presence of left artificial knee joint; E78.00 Pure hypercholesterolemia, unspecified; E78.5 Hyperlipidemia, unspecified; F03.90 Unspecified dementia, unspecified severity, without behavioral disturbance, psychotic disturbance, mood disturbance, and anxiety; I48.91 Unspecified atrial fibrillation; K21.9 Gastro-esophageal reflux disease without esophagitis; N28.9 Disorder of kidney and ureter, unspecified; R29.6 Repeated falls; Z79.899 Other long term (current) drug therapy; Z79.82 Long term (current) use of aspirin; Z86.718 Personal history of other venous thrombosis and embolism; Z88.0 Allergy status to penicillin
CPT/HCPCS: 36415; 71045; 73610; 80053; 81001; 83605; 83735; 83880; 85025; 87040; 93971; 94640; 96365; 96375; J1956; J2185; J3010; J3370; J7040; J7050; J7613; J7620; Q0167; 97110; 97530; 99285-25; J7030

== ENCOUNTER 2018-10-11 00:24 | Inpatient (IN) | payer MEDICARE, OTHER ==
[~2018-10-11] VITALS: Ht 167.6 cm; Wt 64.9 kg
[~2018-10-11 00:24] MED LIST changes: +ALBU0.63 NEB; +AMIO200T4 PO; +ASPI325T8 PO; +ATOR20TA58 PO; +CALCIUM CARBONATE PO; +CHOL500016 PO; +CITA10TA8 PO; +CYAN10005 PO; +DRON2.5C PO; +FERR325T14 PO; +GUAI-108 PO; +GUAI473L15 PO; +LEVO50TA5 PO; +LISI10TA2 PO; +MEMA10TA PO; +METO25TA4 PO; +MIRT15TA PO; +MULT1TAB52 PO; +ONDA4TAB7 PO; +PANT40TA3 PO; +POLY17PO5 PO; +SENN-80 PO; +TRAM50TA PO
--- NOTE | 2018-10-11 00:37 | PHYS DOC ---
Past History Past Medical History: A-Fib, Anemia, Dementia, GERD, High Cholesterol, Hypertension, Hypothyroid, Other Past Surgical History: Hip Replacement Alcohol Use: None Drug Use: None Adult General Chief Complaint Chief Complaint: HIP PAIN HPI HPI Patient is a 88-year-old female sent from the [facility] where she resides due to altered mental status after a fall. She had some right hip pain and received an x-ray at the facility that was interpreted as negative. The report was sent with the patient to the emergency department. History is limited from the patient due to her altered mental status and a baseline history of dementia.[] Review of Systems Review of Systems Unable to obtain due to dementia All other systems were reviewed and found to be within normal limits, except as documented in this note. Allergies Allergies Allergies Coded Allergies Type Severity Reaction Last Updated Verified sulfamethoxazole Allergy Severe 07/24/18 Yes trimethoprim Allergy Severe 07/24/18 Yes Penicillins Adverse Reaction Intermediate 05/22/14 Yes Physical Exam Physical Exam Constitutional: Well developed, well nourished, no acute distress, non-toxic appearance. [] HENT: Normocephalic, atraumatic, bilateral external ears normal, TMs are clear, no blood or fluid, oropharynx moist, no oral exudates, nose normal. [] Eyes: PERRLA, EOMI, conjunctiva normal, no discharge. [] Neck: Normal range of motion, no tenderness, supple, no stridor. [] Cardiovascular:Heart rate regular rhythm, no murmur [] Lungs & Thorax: Bilateral breath sounds clear to auscultation [] Abdomen: Bowel sounds normal, soft, no tenderness, no masses, no pulsatile masses. [] Skin: Warm, dry, no erythema, no rash. [] Back: No tenderness, no CVA tenderness. [] Extremities: No tenderness, no cyanosis, no clubbing, ROM intact, no edema. [] Neurologic: Alert and oriented X 1, normal motor function, normal sensory function, no focal deficits noted. [] Psychologic: Affect normal, mood normal. [] EKG EKG EKG shows a sinus rhythm, left axis at -32, QTC of 453 ms, no ST elevations. Interpreted by me at 0048[] Radiology/Procedures Radiology/Procedures Chest x-ray shows no evidence of an infiltrate, no effusion, no pneumothorax PROCEDURE: CT HEAD AND CERVICAL SPINE WO Examination: CT head and cervical spine without contrast CT HEAD INDICATION: Fall COMPARISON: None Available. Exposure: One or more of the following individualized dose reduction techniques were utilized for this examination: 1. Automated exposure control 2. Adjustment of the mA and/or kV according to patient size 3. Use of iterative reconstruction technique TECHNIQUE: 5 mm contiguous axial images were obtained from the skull base to the vertex in both bone and soft tissue algorithm. FINDINGS: Moderate bilateral periventricular white matter hypodensities likely chronic small vessel ischemic disease. Small old lacunar infarct identified in the left basal ganglia . No evidence of acute intracranial hemorrhage. No extra-axial fluid collections. No mass effect or midline shift. Ventricular size is appropriate. Basal cisterns are patent. No fractures identified.Larios-white differentiation is preserved.Globes and orbits are within normal limits. Paranasal sinuses and mastoid air cells are clear. IMPRESSION: No acute intracranial findings CT CERVICAL SPINE INDICATION: Fall COMPARISON: None Available. Technique: 2.5 mm contiguous axial images were obtained from the skull base through the cervicothoracic junction in both bone and soft tissue algorithm. Additional sagittal and coronal reconstructions were also performed. FINDINGS: Vertebral body height and alignment are maintained. Cervical lordosis is preserved. The lateral masses of C1 are aligned upon C2. No fractures identified. The bony canal is patent throughout. Moderate intervertebral disc height loss identified in cervical spine particularly at C4-C5, C5-C6, C6-C7 vertebral levels with small anterior and posterior osteophyte formation. The paraspinous soft tissues are unremarkable. Visualized intracranial contents are unremarkable. Lung apices are clear. IMPRESSION: 1. No acute fracture of the cervical spine. Correlate clinically. 2. Moderate degenerative changes cervical spine. [] Course & Med Decision Making Course & Med Decision Making Pertinent Labs and Imaging studies reviewed. (See chart for details) ED course: Patient arrived, was placed in bed, and tolerated exam well. She was transported to and from [place] with any complications. After return of laboratory findings, IV antibiotics were started. Consultation was made with her primary care physician for admission and she was admitted in improved condition. Medical decision making: Patient appears to have a urinary tract infection which may be accounting for her worsening mental status. Given that the patient fell she had imaging performed as an outpatient did not show any acute fracture. There is no evidence of intracranial mass or bleed.[] Dragon Disclaimer Dragon Disclaimer This electronic medical record was generated, in whole or in part, using a voice recognition dictation system. Departure Departure: Impression: Primary Impression: Altered mental status Additional Impressions: Urinary tract infection Dementia Disposition: ADMITTED INPATIENT Condition: IMPROVED Referrals: JOHN MAZARIEGOS MD (PCP) Problem Qualifiers Primary Impression: Altered mental status Altered mental status type: unspecified Qualified Codes: R41.82 - Altered mental status, unspecified Additional Impressions: Urinary tract infection Urinary tract infection type: site unspecified Hematuria presence: without hematuria Qualified Codes: N39.0 - Urinary tract infection, site not specified Dementia Dementia type: unspecified type Dementia behavioral disturbance: without behavioral disturbance Qualified Codes: F03.90 - Unspecified dementia without behavioral disturbance ARASH AGEE DO October 11, 2018 00:37
[2018-10-11 01:43] LABS: BASO # 0.1 x10^3/uL (0.0-0.2); BASO % 1 % (0-3); EOS # 0.1 x10^3/uL (0.0-0.7); EOS % 1 % (0-3); HEMOGLOBIN 13.3 g/dL (12.0-15.5); LYMPH # 0.7 x10^3/uL (1.0-4.8); LYMPH % 6 % (24-48); MEAN CORPUSCULAR HEMOGLOBIN 28 pg (25-35); MEAN CORPUSCULAR HGB CONC 32 g/dL (31-37); MEAN CORPUSCULAR VOLUME 87 fL (79-100); MONO # 0.6 x10^3/uL (0.0-1.1); MONO % 6 % (0-9); NEUT # 9.8 x10^3uL (1.8-7.7); NEUT % 87 % (31-73); PLATELET COUNT 249 x10^3/uL (140-400); RED BLOOD COUNT 4.73 x10^6/uL (3.50-5.40); RED CELL DISTRIBUTION WIDTH 15.1 % (11.5-14.5); WHITE BLOOD COUNT 11.3 x10^3/uL (4.0-11.0)
[2018-10-11 01:59] LABS: BILIRUBIN,URINE NEG (NEG); CLARITY,URINE HAZY; GLUCOSE,URINE NEG (NEG); NITRITE,URINE POS (NEG); UROBILINOGEN,URINE 0.2 mg/dL (0.2 mg/dL)
[2018-10-11 02:00] LABS: BACTERIA,URINE FEW /HPF (0-FEW); COLOR,URINE YELLOW; SQUAMOUS EPITHELIAL CELL,UR OCC /LPF
[2018-10-11 02:05] LABS: ALBUMIN 3.4 g/dL (3.4-5.0); ALBUMIN/GLOBULIN RATIO 0.8 (1.0-1.7); CALCIUM 9.8 mg/dL (8.5-10.1); CREATININE 0.9 mg/dL (0.6-1.0); GFR 59.4; MAGNESIUM 1.6 mg/dL (1.8-2.4); POTASSIUM 3.8 mmol/L (3.5-5.1); TOTAL BILIRUBIN 0.6 mg/dL (0.2-1.0); TOTAL PROTEIN 7.5 g/dL (6.4-8.2)
--- NOTE | 2018-10-11 02:16 | RAD ---
Examination: CT head and cervical spine without contrast CT HEAD INDICATION: Fall COMPARISON: None Available. Exposure: One or more of the following individualized dose reduction techniques were utilized for this examination: 1. Automated exposure control 2. Adjustment of the mA and/or kV according to patient size 3. Use of iterative reconstruction technique TECHNIQUE: 5 mm contiguous axial images were obtained from the skull base to the vertex in both bone and soft tissue algorithm. FINDINGS: Moderate bilateral periventricular white matter hypodensities likely chronic small vessel ischemic disease. Small old lacunar infarct identified in the left basal ganglia . No evidence of acute intracranial hemorrhage. No extra-axial fluid collections. No mass effect or midline shift. Ventricular size is appropriate. Basal cisterns are patent. No fractures identified.Larios-white differentiation is preserved.Globes and orbits are within normal limits. Paranasal sinuses and mastoid air cells are clear. IMPRESSION: No acute intracranial findings CT CERVICAL SPINE INDICATION: Fall COMPARISON: None Available. Technique: 2.5 mm contiguous axial images were obtained from the skull base through the cervicothoracic junction in both bone and soft tissue algorithm. Additional sagittal and coronal reconstructions were also performed. FINDINGS: Vertebral body height and alignment are maintained. Cervical lordosis is preserved. The lateral masses of C1 are aligned upon C2. No fractures identified. The bony canal is patent throughout. Moderate intervertebral disc height loss identified in cervical spine particularly at C4-C5, C5-C6, C6-C7 vertebral levels with small anterior and posterior osteophyte formation. The paraspinous soft tissues are unremarkable. Visualized intracranial contents are unremarkable. Lung apices are clear. IMPRESSION: 1. No acute fracture of the cervical spine. Correlate clinically. 2. Moderate degenerative changes cervical spine. Electronically signed by: Marcin Monsalve MD (10/11/2018 2:14 AM) [place] [id number]
[2018-10-11] MEDS ORDERED: ACETAMINOPHEN 325 MG TABLET PO PRN (02:30)
[2018-10-11] MEDS ORDERED: ONDANSETRON PF 4 MG/2 ML VIAL. IV PRN (02:30)
[2018-10-11] MEDS ORDERED: CIPROFLOXACIN 400MG PREMIX 200 ML IV ONE (02:30)
[2018-10-11 03:30] VITALS: BP 167/69
[2018-10-11] MEDS ORDERED: ALBU2.5V5 NEB (03:31)
[2018-10-11] MEDS ORDERED: CALC600T23 PO (03:57)
[2018-10-11] MEDS ORDERED: MOXI3DRO18 OS (04:27)
[2018-10-11] MEDS ORDERED: MAGN400O7 PO (04:27)
[2018-10-11] MEDS ORDERED: LIDO1ADH TP (04:27)
[2018-10-11] MEDS ORDERED: PRED5DRO16 OS (04:27)
[2018-10-11] MEDS ORDERED: NEPA3DRO OS (04:27)
[2018-10-11 05:40] VITALS: BP 149/80
--- NOTE | 2018-10-11 08:29 | RAD ---
Portable chest, 10/11/2018: HISTORY: Altered mental status Comparison is made to the study of 07/26/2018. A right Port-A-Cath extends into the superior vena cava. The heart size is unchanged and within normal limits. There is moderate mitral annular calcification. There is mild tortuosity and calcific plaquing of the thoracic aorta. There is moderate interstitial prominence in both lungs with dominant involvement of the periphery of the lungs. Similar findings were present on the previous study. There is no evidence of pleural fluid. IMPRESSION: Moderate ongoing interstitial prominence in the lungs likely due to chronic interstitial lung disease/fibrosis. A component of chronic or recurrent interstitial edema or pneumonia cannot be excluded. Electronically signed by: Dudley Hodge MD (10/11/2018 8:27 AM) [facility]
[2018-10-11] MEDS: MAGNESIUM OXIDE 400 MG TABLET PO SCH ×2 (08:40→20:44)
[2018-10-11 10:42] VITALS: BP 127/74
[2018-10-11] MEDS ORDERED: MAGNESIUM HYDROXIDE 2,400 MG/30 ML ORAL.SUSP. PO PRN (11:00)
[2018-10-11] MEDS ORDERED: ALBUTEROL SULFATE 2.5 MG/3 ML NEBU. NEB PRN (11:00)
[2018-10-11] MEDS ORDERED: ONDANSETRON ODT 4 MG TAB.RAPDIS PO PRN (11:00)
[2018-10-11] MEDS ORDERED: LIDOCAINE (700MG/PATCH) PATCH. TD PRN (11:30)
[2018-10-11] MEDS: POLYETHYLENE GLYCOL 3350 17 GM PACKET. PO SCH (11:30)
[2018-10-11] MEDS: SENNOSIDES 8.6 MG TABLET PO SCH (11:30)
[2018-10-11] MEDS: PANTOPRAZOLE 40 MG TABLET. PO SCH (11:30)
--- NOTE | 2018-10-11 11:40 | HP ---
ADMIT DATE: 10/11/2018 HISTORY OF PRESENT ILLNESS: The patient is an 88-year-old female patient, a resident at [facility], who apparently was brought to the Emergency Room with altered mental status after a fall. She did complain of right hip pain and received an x-ray at the facility that was interpreted as negative. She was evaluated in the Emergency Room and has had extensive investigation including lab work and imaging studies and was admitted for further evaluation and treatment. The patient is demented, but said that she attempted to get out of the bed and fell. Her lab work showed her white cell count was slightly elevated at 11,300. Her chemistry showed hypomagnesemia and her urinalysis showed that her nitrite was positive. There was trace of leukocyte esterase, 5-10 wbc's and few bacteria and was treated with IV ciprofloxacin. PAST MEDICAL HISTORY: Significant for hypertension, hyperlipidemia, atrial fibrillation, rate controlled, not anticoagulated. She is also known to have hypothyroidism, osteoarthritis, anemia as well as dementia. PAST SURGICAL HISTORY: Significant for left hip surgery, right hip nailing, right inguinal hernia repair, bladder sling, and left knee replacement. FAMILY HISTORY: Noncontributory. SOCIAL HISTORY: She is . Her has recently. She is currently residing at [facility]. She does not smoke, drink alcohol or use any recreational drugs. ALLERGIES: She is allergic to PENICILLIN, SULFAMETHOXAZOLE and TRIMETHOPRIM. MEDICATIONS: She is currently on following medications: She is on albuterol sulfate 2.5 mg in 3 mL by nebulizer q.i.d. She is on ferrous sulfate 325 mg tablet once a day, amiodarone 200 mg once a day, metoprolol tartrate 25 mg twice a day. She is on lisinopril 10 mg daily, aspirin 325 mg daily, tramadol 50 mg every 6 hours, citalopram hydrobromide 10 mg daily, mirtazapine 22.5 mg daily, Namenda 10 mg twice a day, calcium carbonate 600 mg daily, moxifloxacin for Vigamox 1 drop to both eyes 3 times a day. She has nepafenac eyedrops 1 drop to both eyes 3 times a day, magnesium hydroxide for milk of magnesia 30 mL p.o. daily p.r.n. for constipation, MiraLax 17 grams daily p.r.n. for constipation, Senna 1 tablet daily, dronabinol 2.5 mg twice a day, Protonix 40 mg daily, levothyroxine sodium 50 mcg daily, LidoPatch applied topically daily, Cyanocobalamin 1000 mcg p.o. daily. She is on ascorbic acid 500 mg p.o. daily, cholecalciferol 5000 international units once a day, multivitamin 1 tablet once a day. PHYSICAL EXAMINATION: GENERAL: On arrival to the Emergency Room, the patient looked pale, but not jaundice, cyanosis, thyromegaly. No jugular venous distension. No lower limb edema. VITAL SIGNS: Her heart rate was 76, blood pressure was 166/65, temperature was 97.8, respiratory rate 20, and oxygen saturation was 98% on room air. HEAD, EYES, EARS, NOSE, AND THROAT: Showed normocephalic, atraumatic. NECK: Supple. HEART: Showed normal first and second heart sounds. No gallop, rub or murmur. CHEST: Clear to auscultation. No crepitation or rhonchi. ABDOMEN: Distended, soft, nontender. IMPRESSION: She was demented, but without any obvious lateralizing sign. Her lab work showed that her white cell count was 11,300, hemoglobin 13.3, hematocrit 41, MCV 87, and platelet count 249,000 with manual differential showed 7% polymorphs, 6% lymphocytes and 6% monocytes. Her chemistry showed a serum sodium 142, potassium 3.8, chloride 104, bicarbonate 28, anion gap of 10, BUN 12, creatinine 0.9, estimated GFR was 59 mL per minute. Her glucose 124, calcium was 9.8, magnesium was 1.6. Total bilirubin, AST, ALT, alkaline phosphatase were normal. Her troponin was less than 0.024. Beta natriuretic peptide was 1898. Total protein was 7.5, albumin was 3.4. Urinalysis showed the urine was yellow, hazy with a pH of 5.5, specific gravity of 1.015. The urine was negative for protein, glucose, trace of ketones, small amount of blood, positive for nitrite and leukocyte esterase, 1-2 rbc's, 5-10 wbc's and positive for bacteria. She has had CT scan of the head, which showed moderate bilateral periventricular white matter hypodensities, likely chronic small vessel ischemic disease, small old lacunar infarct identified in the left basal ganglia. There is no evidence of intracranial hemorrhage, no extraaxial fluid collection, no mass effect or midline shift. Ventricular size is appropriate. Basal cisterns are patent. No fracture identified. Larios-white differentiation is preserved. Globes and orbits are within normal limits. Paranasal sinuses and mastoid air cells are clear. CT scan of her cervical spine showed that she has vertebral body heights and alignments are maintained. Cervical lordosis is preserved. The lateral masses of C1 are aligned up in situ. No fractures identified. The bony canal is patent throughout. Moderate intervertebral disk height loss identified in cervical spine particularly at C4-C5, C5-C6 and C6-C7 vertebral levels with small anterior and posterior osteophyte formation. The paraspinal soft tissues unremarkable. The visualized intracranial event content is unremarkable. Lung apices are clear with the impression the patient has no acute fracture of the cervical spine, moderate degenerative changes of cervical spine. ASSESSMENT AND PLAN: The patient was admitted to continue with IV antibiotic in the form of ciprofloxacin, will reconcile all her medication. I will look into the report from the nursing facility about her left hip joint or might have to repeat x-ray as she is still continued to complain of pain in her right lower extremity. JOHN MAZARIEGOS MD DR: CRISTO/dayan JOB#: [id number] / [id number]
[2018-10-11] MEDS: CITALOPRAM 10 MG TABLET. PO SCH (13:02)
[2018-10-11] MEDS: ASPIRIN 325 MG TABLET PO SCH (13:02)
[2018-10-11] MEDS: ASCORBIC ACID 500 MG TABLET PO SCH (13:05)
[2018-10-11] MEDS: CHOLECALCIFEROL (VITAMIN D3) 1,000 UNIT TABLET PO SCH (13:05)
[2018-10-11] MEDS: LEVOTHYROXINE 50 MCG TABLET PO SCH (13:05)
[2018-10-11] MEDS: METOPROLOL TART IMMED RELEASE 25 MG TABLET PO SCH ×2 (13:05→20:44)
[2018-10-11] MEDS: AMIODARONE HCL 200 MG TABLET PO SCH (13:05)
[2018-10-11] MEDS: DRONABINOL 2.5 MG CAPSULE PO SCH ×2 (13:05→17:13)
[2018-10-11] MEDS: MULTIVITAMIN with MINERAL TABLET. PO SCH (13:06)
[2018-10-11] MEDS: MEMANTINE 10 MG TABLET. PO SCH ×2 (13:06→20:44)
[2018-10-11] MEDS: CALCIUM CARBONATE 500 MG TABLET PO SCH (13:06)
[2018-10-11] MEDS: prednisoLONE ACETATE 1% OPHTH SUSPENSION 5ML BOTTLE. OS SCH ×2 (13:07→20:47)
[2018-10-11] MEDS: KETOROLAC TROMETHAMINE 0.5% OPHTH SOLUTION 3ML BOTTLE. OS SCH ×2 (13:07→20:47)
[2018-10-11] MEDS: MOXIFLOXACIN 0.5% OPHTH SOLUTION 3ML BOTTLE. OS SCH ×2 (13:07→20:48)
[2018-10-11] MEDS ORDERED: NEPAFENAC 0.1% OPHTH SOLUTION 3ML BOTTLE. OS SCH (14:00)
[2018-10-11] MEDS: traMADol 50 MG TABLET PO PRN ×2 (15:02→20:44)
[2018-10-11 15:05] VITALS: BP 139/78
[2018-10-11 20:03] VITALS: BP 169/72
[2018-10-11] MEDS: MIRTAZAPINE 15 MG TABLET PO SCH (20:44)
[2018-10-11] MEDS: CIPROFLOXACIN 200MG PREMIX 100 ML IV SCH (20:45)
[2018-10-11 22:15] VITALS: BP 156/70
[2018-10-12] MEDS: LEVOTHYROXINE 50 MCG TABLET PO SCH (05:26)
[2018-10-12 05:55] VITALS: BP 147/53
[2018-10-12 07:02] LABS: BASO # 0.1 x10^3/uL (0.0-0.2); BASO % 1 % (0-3); EOS # 0.6 x10^3/uL (0.0-0.7); EOS % 7 % (0-3); HEMATOCRIT 37.1 % (36.0-47.0); HEMOGLOBIN 12.2 g/dL (12.0-15.5); LYMPH % 12 % (24-48); MEAN CORPUSCULAR HEMOGLOBIN 29 pg (25-35); MEAN CORPUSCULAR HGB CONC 33 g/dL (31-37); MEAN CORPUSCULAR VOLUME 87 fL (79-100); MONO # 0.7 x10^3/uL (0.0-1.1); MONO % 8 % (0-9); NEUT # 5.8 x10^3uL (1.8-7.7); NEUT % 71 % (31-73); PLATELET COUNT 199 x10^3/uL (140-400); RED BLOOD COUNT 4.26 x10^6/uL (3.50-5.40); WHITE BLOOD COUNT 8.1 x10^3/uL (4.0-11.0)
[2018-10-12 07:13] LABS: ALBUMIN 2.8 g/dL (3.4-5.0); ALBUMIN/GLOBULIN RATIO 0.8 (1.0-1.7); CALCIUM 9.5 mg/dL (8.5-10.1); CREATININE 0.9 mg/dL (0.6-1.0); GFR 59.4; POTASSIUM 3.8 mmol/L (3.5-5.1); TOTAL BILIRUBIN 0.5 mg/dL (0.2-1.0); TOTAL PROTEIN 6.1 g/dL (6.4-8.2)
[2018-10-12] MEDS: ASCORBIC ACID 500 MG TABLET PO SCH (08:10)
[2018-10-12] MEDS: CHOLECALCIFEROL (VITAMIN D3) 1,000 UNIT TABLET PO SCH (08:10)
[2018-10-12] MEDS: MEMANTINE 10 MG TABLET. PO SCH ×2 (08:10→20:04)
[2018-10-12] MEDS: LISINOPRIL 10 MG TABLET PO SCH (08:11)
[2018-10-12] MEDS: POLYETHYLENE GLYCOL 3350 17 GM PACKET. PO SCH (08:12)
[2018-10-12] MEDS: METOPROLOL TART IMMED RELEASE 25 MG TABLET PO SCH ×2 (08:12→20:04)
[2018-10-12] MEDS: MAGNESIUM OXIDE 400 MG TABLET PO SCH ×2 (08:12→20:04)
[2018-10-12] MEDS: ASPIRIN 325 MG TABLET PO SCH (08:12)
[2018-10-12] MEDS: CALCIUM CARBONATE 500 MG TABLET PO SCH (08:12)
[2018-10-12] MEDS: AMIODARONE HCL 200 MG TABLET PO SCH (08:12)
[2018-10-12] MEDS: traMADol 50 MG TABLET PO PRN ×2 (08:13→20:04)
[2018-10-12] MEDS: SENNOSIDES 8.6 MG TABLET PO SCH (08:13)
[2018-10-12] MEDS: MOXIFLOXACIN 0.5% OPHTH SOLUTION 3ML BOTTLE. OS SCH ×3 (08:13→20:06)
[2018-10-12] MEDS: CYANOCOBALAMIN (VITAMIN B-12) 1,000 MCG TABLET. PO SCH (08:13)
[2018-10-12] MEDS: FERROUS SULFATE 325 MG TABLET. PO SCH (08:13)
[2018-10-12] MEDS: CITALOPRAM 10 MG TABLET. PO SCH (08:13)
[2018-10-12] MEDS: prednisoLONE ACETATE 1% OPHTH SUSPENSION 5ML BOTTLE. OS SCH ×3 (08:13→20:05)
[2018-10-12] MEDS: MULTIVITAMIN with MINERAL TABLET. PO SCH (08:13)
[2018-10-12] MEDS: PANTOPRAZOLE 40 MG TABLET. PO SCH (08:13)
[2018-10-12] MEDS: KETOROLAC TROMETHAMINE 0.5% OPHTH SOLUTION 3ML BOTTLE. OS SCH ×3 (08:13→20:06)
[2018-10-12] MEDS: CIPROFLOXACIN 200MG PREMIX 100 ML IV SCH ×2 (08:16→20:03)
[2018-10-12 08:34] VITALS: BP 184/76
[2018-10-12] MEDS ORDERED: CITALOPRAM 10 MG TABLET. PO SCH (09:00)
[2018-10-12] MEDS ORDERED: ASPIRIN 325 MG TABLET PO SCH (09:00)
--- NOTE | 2018-10-12 10:16 | EKG ---
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
[2018-10-12] MEDS: DRONABINOL 2.5 MG CAPSULE PO SCH (11:30)
[2018-10-12 12:20] VITALS: BP 183/65
--- NOTE | 2018-10-12 13:32 | RAD ---
AP and lateral right femur radiographs to include AP and lateral radiographs of the right knee 10/12/2018 CLINICAL HISTORY: Fall with right femur and knee pain. 2 AP and 2 lateral digital radiographs of the right femur were obtained. 2 AP and a lateral digital radiographs of the right femur were obtained. An intramedullary sera with proximal right hip screw and distal interlocking bone screw is seen. An old healed fracture of the intertrochanteric region of the proximal right femur is seen. No acute fracture or dislocation of the right femur is seen. Mild to moderate degenerative changes are seen involving the right hip. No fracture or dislocation of the right knee is seen. Moderate to severe degenerative changes are seen involving all 3 compartments of the right knee. Atherosclerotic calcification of the right common femoral artery and its branches is noted. IMPRESSION: No acute fracture or dislocation is seen. Electronically signed by: Morgan Dougherty MD (10/12/2018 1:29 PM) [facility]
--- NOTE | 2018-10-12 13:32 | RAD ---
AP and lateral right femur radiographs to include AP and lateral radiographs of the right knee 10/12/2018 CLINICAL HISTORY: Fall with right femur and knee pain. 2 AP and 2 lateral digital radiographs of the right femur were obtained. 2 AP and a lateral digital radiographs of the right femur were obtained. An intramedullary sera with proximal right hip screw and distal interlocking bone screw is seen. An old healed fracture of the intertrochanteric region of the proximal right femur is seen. No acute fracture or dislocation of the right femur is seen. Mild to moderate degenerative changes are seen involving the right hip. No fracture or dislocation of the right knee is seen. Moderate to severe degenerative changes are seen involving all 3 compartments of the right knee. Atherosclerotic calcification of the right common femoral artery and its branches is noted. IMPRESSION: No acute fracture or dislocation is seen. Electronically signed by: Morgan oDugherty MD (10/12/2018 1:29 PM) [facility]
--- NOTE | 2018-10-12 13:33 | RAD ---
AP and lateral right tibia and fibula radiographs 10/12/2018 CLINICAL HISTORY: Fall with injury to the right lower leg. Portable AP and lateral digital radiographs of the right tibia and fibula were obtained. The medial malleolus of the right ankle is not included on these radiographs. The tibial talar joint is not included on the lateral radiograph. Diffuse osteopenia the visualized bony structures. No fracture or dislocation of the right tibia or fibula is seen. Moderate to severe degenerative changes are seen involving the medial and lateral compartments of the right knee joint. IMPRESSION: No fracture or dislocation right tibia or fibula is seen. Electronically signed by: Morgan Dougherty MD (10/12/2018 1:30 PM) [facility]
[2018-10-12 15:53] VITALS: BP 150/74
[2018-10-12 19:25] VITALS: BP 162/77
[2018-10-12] MEDS: MIRTAZAPINE 15 MG TABLET PO SCH (20:04)
--- NOTE | 2018-10-13 01:48 | PN ---
DATE: 10/12/2018 SUBJECTIVE: The patient is resting, slightly propped up in bed, in no apparent distress. She continued to complain of pain in her right lower extremity. She is unable to specify what the pain is she is feeling in the shelter and unfortunately the x-ray that we ordered yesterday was done. PHYSICAL EXAMINATION: GENERAL: When I examined her this morning, she was pale, but no jaundice, cyanosis, or thyromegaly. No jugular venous distension. No lower limb edema. VITAL SIGNS: Her heart rate was 66, blood pressure was 184/76, temperature was 97.4, respiratory rate was 18 and oxygen saturation was 95% on 2 liters of oxygen. HEAD, EYES, EARS, NOSE AND THROAT: Showed normocephalic, atraumatic. NECK: Supple. HEART: Showed normal first and second heart sounds. No gallop, rub or murmur. CHEST: Clear to auscultation. No crepitation or rhonchi. ABDOMEN: Distended, soft, nontender. NEUROLOGIC: She is demented, but without any obvious lateralizing sign. All her cranial nerves are intact. She moves upper extremities without difficulty as well as left lower extremity. She is unable to move her right lower extremity. She does have right hip fracture, treated with an intramedullary nailing before she fell in the shelter and apparently has had pain in her right lower extremity. LABORATORY DATA: Her lab work this morning showed her white cell count to be 8100, hemoglobin 12, hematocrit 37, MCV 87 and platelet count of 199,000 with normal manual differential. Her serum sodium was 141, potassium 3.8, chloride 103, bicarbonate 31, anion gap of 7, BUN 13, creatinine 0.9, estimated GFR was 59 mL per minute. Her glucose was 88, calcium was 9.5. Total bilirubin, AST, ALT, alkaline phosphatase were normal. Total protein was 6.1, albumin 2.8. ASSESSMENT: The patient was admitted with altered mental status. She also has a fall, was found to have urinary tract infection, for which we started her on IV ciprofloxacin. I will arrange for her to have x-ray of her right femur. She is still complaining of pain in her right thigh and knee and right leg. I will arrange for them to be x-rayed. Meanwhile, we will continue with IV antibiotic and all her other medications. JOHN MAZARIEGOS MD DR: CRISTO/dayan JOB#: [id number] / [id number]
[2018-10-13] MEDS: LEVOTHYROXINE 50 MCG TABLET PO SCH (05:30)
[2018-10-13 05:38] VITALS: BP 175/82
[2018-10-13] MEDS: AMIODARONE HCL 200 MG TABLET PO SCH (07:58)
[2018-10-13] MEDS: CHOLECALCIFEROL (VITAMIN D3) 1,000 UNIT TABLET PO SCH (07:58)
[2018-10-13] MEDS: SENNOSIDES 8.6 MG TABLET PO SCH (07:58)
[2018-10-13] MEDS: CALCIUM CARBONATE 500 MG TABLET PO SCH (07:58)
[2018-10-13] MEDS: POLYETHYLENE GLYCOL 3350 17 GM PACKET. PO SCH (07:58)
[2018-10-13] MEDS: MEMANTINE 10 MG TABLET. PO SCH ×2 (07:58→21:13)
[2018-10-13] MEDS: ASPIRIN 325 MG TABLET PO SCH (07:58)
[2018-10-13] MEDS: PANTOPRAZOLE 40 MG TABLET. PO SCH (07:58)
[2018-10-13] MEDS: CYANOCOBALAMIN (VITAMIN B-12) 1,000 MCG TABLET. PO SCH (07:59)
[2018-10-13] MEDS: METOPROLOL TART IMMED RELEASE 25 MG TABLET PO SCH ×2 (07:59→21:14)
[2018-10-13] MEDS: KETOROLAC TROMETHAMINE 0.5% OPHTH SOLUTION 3ML BOTTLE. OS SCH ×3 (07:59→21:24)
[2018-10-13] MEDS: FERROUS SULFATE 325 MG TABLET. PO SCH (07:59)
[2018-10-13] MEDS: ASCORBIC ACID 500 MG TABLET PO SCH (07:59)
[2018-10-13] MEDS: MULTIVITAMIN with MINERAL TABLET. PO SCH (07:59)
[2018-10-13] MEDS: LISINOPRIL 10 MG TABLET PO SCH (07:59)
[2018-10-13] MEDS: CITALOPRAM 10 MG TABLET. PO SCH (07:59)
[2018-10-13] MEDS: prednisoLONE ACETATE 1% OPHTH SUSPENSION 5ML BOTTLE. OS SCH ×3 (07:59→21:24)
[2018-10-13] MEDS: CIPROFLOXACIN 200MG PREMIX 100 ML IV SCH ×3 (08:00→21:26)
[2018-10-13] MEDS: MOXIFLOXACIN 0.5% OPHTH SOLUTION 3ML BOTTLE. OS SCH ×3 (08:00→21:24)
[2018-10-13 11:21] VITALS: BP 143/70
[2018-10-13] MEDS: POTASSIUM CL 20MEQ D5-0.2%NACL 1,000 ML IV SCH (13:47)
[2018-10-13 16:01] VITALS: BP 141/70
[2018-10-13 19:12] VITALS: BP 181/71
[2018-10-13] MEDS: MIRTAZAPINE 15 MG TABLET PO SCH ×2 (21:00→21:14)
[2018-10-13 22:51] VITALS: BP 174/81
--- NOTE | 2018-10-13 22:58 | PN ---
DATE: 10/13/2018 SUBJECTIVE: The patient is resting slightly propped up in her recliner, in no apparent distress. She is awake, alert, continued to complain of dry mouth. We did x-ray of her right femur, knee, tibia and fibula and she definitely has no acute fracture or dislocation seen. There was no fracture or dislocation of the right knee seen. Uzmehuun-hy-nellcf degenerative changes are seen involving all 3 compartments of the right knee. She has also atherosclerotic calcification of the right common femoral artery and its branches as noted. There is no fracture of tibia and fibula. PHYSICAL EXAMINATION: GENERAL: When I examined her this morning, she looked well and was clearly in no apparent respiratory distress. She was pale, but no jaundice or cyanosis. No lymphadenopathy, no thyromegaly. No jugular venous distension. No limb edema. VITAL SIGNS: Her heart rate was 63, blood pressure was 143/70, her temperature was 98.5, respiratory rate 22 and oxygen saturation was 96% on 2 liters of oxygen. HEAD, EYES, EARS, NOSE AND THROAT: Showed normocephalic, atraumatic. NECK: Supple. HEART: Showed normal first and second heart sounds. No gallop or murmur. CHEST: Clear to auscultation. No crepitation or rhonchi. ABDOMEN: Distended, soft, nontender. NEUROLOGIC: She was awake, alert, responding appropriately. All cranial nerves intact. She moves upper extremities without difficulty. Her intake over the last 24 hours was 1018, no output was recorded. LABORATORY DATA: Her lab work as of yesterday showed a BUN of 13, creatinine 0.9. TSH slightly elevated at ____ and her hemoglobin was 12, hematocrit 37 with normal white cell count and platelets. Her urine culture has grown Escherichia coli and her blood cultures are so far negative after 2 days. PLAN: To continue with IV ciprofloxacin, continue with IV fluid. I will repeat her lab work tomorrow and hopefully discharge her back to [place]. JOHN MAZARIEGOS MD DR: CRISTO/dayan JOB#: [id number] / [id number]
[2018-10-14 05:58] VITALS: BP 177/78
[2018-10-14] MEDS: LEVOTHYROXINE 50 MCG TABLET PO SCH (06:14)
[2018-10-14 06:32] LABS: HEMATOCRIT 36.5 % (36.0-47.0); HEMOGLOBIN 12.2 g/dL (12.0-15.5); RED BLOOD COUNT 4.21 x10^6/uL (3.50-5.40); WHITE BLOOD COUNT 7.5 x10^3/uL (4.0-11.0)
[2018-10-14 06:42] LABS: CALCIUM 9.3 mg/dL (8.5-10.1); CREATININE 0.7 mg/dL (0.6-1.0); GFR 79.3; POTASSIUM 4.2 mmol/L (3.5-5.1)
[2018-10-14] MEDS: PANTOPRAZOLE 40 MG TABLET. PO SCH ×2 (07:30→07:50)
[2018-10-14] MEDS: FERROUS SULFATE 325 MG TABLET. PO SCH ×2 (07:48→09:00)
[2018-10-14] MEDS: ASPIRIN 325 MG TABLET PO SCH ×2 (07:48→09:00)
[2018-10-14] MEDS: ASCORBIC ACID 500 MG TABLET PO SCH ×2 (07:48→09:00)
[2018-10-14] MEDS: AMIODARONE HCL 200 MG TABLET PO SCH ×2 (07:48→09:00)
[2018-10-14] MEDS: CYANOCOBALAMIN (VITAMIN B-12) 1,000 MCG TABLET. PO SCH ×2 (07:48→09:00)
[2018-10-14] MEDS: CHOLECALCIFEROL (VITAMIN D3) 1,000 UNIT TABLET PO SCH ×2 (07:49→09:00)
[2018-10-14] MEDS: MEMANTINE 10 MG TABLET. PO SCH ×2 (07:49→09:00)
[2018-10-14] MEDS: METOPROLOL TART IMMED RELEASE 25 MG TABLET PO SCH ×2 (07:49→09:00)
[2018-10-14] MEDS: LISINOPRIL 10 MG TABLET PO SCH ×2 (07:49→09:00)
[2018-10-14] MEDS: SENNOSIDES 8.6 MG TABLET PO SCH ×2 (07:49→09:00)
[2018-10-14] MEDS: CITALOPRAM 10 MG TABLET. PO SCH ×2 (07:50→09:00)
[2018-10-14] MEDS: prednisoLONE ACETATE 1% OPHTH SUSPENSION 5ML BOTTLE. OS SCH (07:50)
[2018-10-14] MEDS: MOXIFLOXACIN 0.5% OPHTH SOLUTION 3ML BOTTLE. OS SCH (07:50)
[2018-10-14] MEDS: MULTIVITAMIN with MINERAL TABLET. PO SCH ×2 (07:50→09:00)
[2018-10-14] MEDS: KETOROLAC TROMETHAMINE 0.5% OPHTH SOLUTION 3ML BOTTLE. OS SCH (07:50)
[2018-10-14] MEDS: CALCIUM CARBONATE 500 MG TABLET PO SCH ×2 (07:50→09:00)
[2018-10-14] MEDS: POLYETHYLENE GLYCOL 3350 17 GM PACKET. PO SCH (07:51)
[2018-10-14] MEDS: POTASSIUM CL 20MEQ D5-0.2%NACL 1,000 ML IV SCH (09:12)
[2018-10-14 11:02] VITALS: BP 166/79
--- NOTE | 2018-10-14 20:42 | DS ---
DATE OF DISCHARGE: 10/14/2018 HOSPITAL COURSE: The patient is an 88-year-old female patient, a resident at [facility], who was admitted after she fell, landing on her right side. She was seen in the Emergency Room for altered mental status, apparently had an x-ray done at the facility, which showed no evidence of fracture. She was extensively investigated in the Emergency Room. Her x-ray of the head and cervical spine were normal. White cell count was slightly elevated. She was hypomagnesemic and also urinalysis was positive for nitrite and a trace of leukocyte esterase. We did repeat x-rays of her right femur, right knee and right tibia and fibula with no evidence of any fracture. Her knee x-ray showed that the patient has no fracture or dislocation of the right knee. She has moderate to severe degenerative changes that are seen involving all 3 compartments of the right knee. Atherosclerotic calcification of the right common femoral artery and its branches noted. Her urine culture showed growth of Escherichia coli, 63372-85943 colony forming units per mL, which is sensitive to cephalosporins as well as almost all antibiotics. She has received 3 days' of IV ciprofloxacin. PHYSICAL EXAMINATION: GENERAL: When I saw her this morning, she was resting slightly propped up in bed, in no apparent respiratory distress and somewhat lethargic, but arousable; pale, no jaundice, cyanosis, or thyromegaly. No jugular venous distension. No lower limb edema. VITAL SIGNS: Her heart rate was 65, blood pressure was 166/79, temperature was 97.4, respiratory rate was 20 and oxygen saturation was 98% on room air. HEENT: Examination of the head, eyes, ears, nose and throat showed normocephalic, atraumatic. NECK: Supple. HEART: Showed normal first and second heart sounds with no gallop, rub or murmur. CHEST: Clear to auscultation. No crepitation or rhonchi. ABDOMEN: Distended, soft, nontender. NEUROLOGIC: She is demented, but without any obvious lateralizing sign. All her cranial nerves are intact. EXTREMITIES: She moves upper extremities and left extremities without difficulty. She continued to have difficulty moving her right lower extremity, although all x-ray showed no evidence of any fracture. Her intake was 465. No output was recorded. LABORATORY DATA: Her lab work this morning showed a white cell count 7500, hemoglobin 12.2, hematocrit 36.5, MCV 87 and platelet count 224,000. Her serum sodium was 139, potassium 4.2, chloride 103, bicarbonate 31, anion gap of 5, BUN 9, creatinine 0.7. Estimated GFR was 79 mL per minute. Her glucose was 90, calcium was 9.3. Her prothrombin time was 10.4, INR of 1. Urinalysis showed the urine was hazy with the pH of 5.5, specific gravity of 1.015. The urine was negative for protein, glucose, ketones, small amount of blood, positive for nitrite, a trace of leukocyte esterase, 1-2 RBCs, 5-10 WBCs, very few bacteria. Her blood cultures were negative after 3 days and urine culture grew only 21715-68,000 colony forming units per mL, sensitive to all antibiotics. DISCHARGE MEDICATIONS: The patient was discharged back to [facility] to continue on albuterol sulfate 2.5 mg 3 mL by nebulizer 4 times a day, amiodarone 200 mg once a day, ascorbic acid 500 mg daily, aspirin 325 mg daily, calcium carbonate 600 mg daily, cholecalciferol vitamin D3 5000 units once a day, Celexa 10 mg once a day; cyanocobalamin 1000 mcg tablet once a day, dronabinol for Marinol 2.5 mg twice a day, ferrous sulfate 325 mg daily, levothyroxine sodium 50 mcg daily, Lidoderm patch apply topically daily p.r.n. for pain, lisinopril 10 mg once a day, magnesium hydroxide for milk of magnesia 30 mL p.o. daily p.r.n. for constipation, Namenda 10 mg twice a day, metoprolol tartrate 25 mg twice a day, mirtazapine for Remeron 2.5 mg p.o. daily, moxifloxacin for Vigamox 1 drop to both eyes 3 times a day, multivitamin 1 tablet once a day, Nevanac 1 drop to both eyes 3 times a day, ondansetron 4 mg every 6 hours as needed for nausea and vomiting, Protonix 40 mg once a day, polyethylene glycol 17 grams daily p.r.n. for constipation, prednisolone acetate for Pred Forte 3 times a day, and senna 1 tablet once a day, tramadol 50 mg every 6 hours as needed. FINAL DISCHARGE DIAGNOSES: Altered mental status, resolved; pain in her right hip joint; however, x-rays of her head, right femur, right knee, right tibia and fibula are all negative for any fracture. Other medical problems include hypertension, hyperlipidemia, atrial fibrillation that is rate controlled, not anticoagulated; hypothyroidism, osteoarthritis, anemia as well as dementia. She did grow 55982-97340 units of colony forming units of Escherichia coli sensitive to ciprofloxacin. She did receive 3 days' course of IV Cipro. JOHN MAZARIEGOS MD DR: CRISTO/dayan JOB#: [id number] / [id number]
== END 2018-10-14 13:10 | disposition home or self-care (01) | DRG 690 ==
LOC: ER 00:24 → 1 SOUTH 02:08
PROVIDERS: ADMIT Internal Medicine; ATTEND Internal Medicine
DX: N39.0 Urinary tract infection, site not specified (principal); E03.9 Hypothyroidism, unspecified; E78.00 Pure hypercholesterolemia, unspecified; E78.5 Hyperlipidemia, unspecified; E83.42 Hypomagnesemia; R41.82 Altered mental status, unspecified; F03.90 Unspecified dementia, unspecified severity, without behavioral disturbance, psychotic disturbance, mood disturbance, and anxiety; I10 Essential (primary) hypertension; I48.91 Unspecified atrial fibrillation; K21.9 Gastro-esophageal reflux disease without esophagitis; M25.78 Osteophyte, vertebrae; B96.20 Unspecified Escherichia coli [E. coli] as the cause of diseases classified elsewhere; M40.50 Lordosis, unspecified, site unspecified; Z86.73 Personal history of transient ischemic attack (TIA), and cerebral infarction without residual deficits; Z96.652 Presence of left artificial knee joint; Z96.649 Presence of unspecified artificial hip joint; M19.90 Unspecified osteoarthritis, unspecified site; W18.39XA Other fall on same level, initial encounter; Y93.89 Activity, other specified; Y92.89 Other specified places as the place of occurrence of the external cause; Y99.8 Other external cause status; Z88.0 Allergy status to penicillin; Z88.8 Allergy status to other drugs, medicaments and biological substances
CPT/HCPCS: 36415; 70450; 71045; 72125; 73552; 73560; 73590; 80048; 80053; 81001; 83735; 83880; 84443; 84484; 85025; 85027; 85610; 87040; 87086; 87186; 87641; 93005; 96365; J0744; P9612; Q0167; 99285-25

== ENCOUNTER 2020-01-17 14:52 | Inpatient (IN) | payer MEDICARE, OTHER ==
[~2020-01-17] VITALS: Ht 167.6 cm; Wt 65.5 kg
[~2020-01-17 14:52] MED LIST changes: +ALBU2.5V5 NEB; +CALC600T23 PO; +CYAN-25 PO; -CYAN10005 PO; +LIDO1ADH TP; +MAGN400O7 PO; +MOXI3DRO18 OS; +MULT-445 PO; -MULT1TAB52 PO; +NEPA3DRO OS; +PRED5DRO16 OS; +SENN-182 PO; -SENN-80 PO; +SIMV40TA18 PO; -SIMV40TA3 PO
[2020-01-17] MEDS ORDERED: IV NORMAL SALINE 1,000ML 1,000 ML IV ONE (15:00)
--- NOTE | 2020-01-17 15:12 | RAD ---
Examination: CT CODE STROKE HEAD WO History: Reason: fall, pain, altered mental status / Spl. Instructions: / History: Comparison/Correlation: 10/11/2018 CT head and cervical spine without contrast Findings: Axial images of the head were obtained without contrast. Atrophy is notable. Chronic ischemic changes of white matter noted. Old lacunar infarct involving the left basal ganglia noted. Very small right basal ganglia lacunar infarct. Small lacunar infarct which is probably old in both the high right frontoparietal region in the interval measuring less than 0.5 cm in diameter and best seen on axial image 25. Bony structures are unremarkable. Orbits are unremarkable. Impression: No findings of acute infarct. Consider further evaluation if infarct is a persistent concern. On 01/17/2020 at 3:09 PM, discussed with Dr. Owen of the emergency Department. PQRS Compliance Statement: One or more of the following individualized dose reduction techniques were utilized for this examination: 1. Automated exposure control 2. Adjustment of the mA and/or kV according to patient size 3. Use of iterative reconstruction technique Electronically signed by: Kiko Garcia MD (01/17/2020 3:09 PM) [id number]
--- NOTE | 2020-01-17 15:45 | RAD ---
RS Compliance Statement: One or more of the following individualized dose reduction techniques were utilized for this examination: 1. Automated exposure control 2. Adjustment of the mA and/or kV according to patient size 3. Use of iterative reconstruction technique CT CERVICAL SPINE WITHOUT CONTRAST Clinical Indication: Reason: fall, pain, altered mental status / Spl. Instructions: / History: Comparison: None. Technique: Noncontrast helical CT of the cervical spine was performed. Axial, sagittal, and coronal reconstructions were obtained. Findings: There is no evidence of acute fracture or acute malalignment. There are no perched or jumped facet joints. The facet joints are mildly hypertrophic. The vertebral body height and alignment are maintained. There is disc space narrowing and endplate spurring of C5/C6 and C6/C7 and T1/T2. There are spondylitic discs of C2/C3 and C3/C4. There is degenerative change of the TMJ. There is uncinate process hypertrophy of C4/C5 and C5/C6. Visualized soft tissues of the neck demonstrate no significant abnormalities. There are peripheral reticular opacities in the lung apices. IMPRESSION: No acute fracture or malalignment. Electronically signed by: Pelon Oleary MD (01/17/2020 3:42 PM) [id number]
--- NOTE | 2020-01-17 15:47 | EKG ---
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
--- NOTE | 2020-01-17 15:54 | PHYS DOC ---
Past History Past Medical History: A-Fib, Anemia, Dementia, GERD, High Cholesterol, Hypertension, Hypothyroid, Other Past Medical History Limited secondary to dementia/altered mental status Past Surgical History: Hip Replacement Past Surgical History Limited secondary to dementia/altered mental status Alcohol Use: None Drug Use: None Social History Limited secondary to dementia/altered mental status General Adult EDM: Chief Complaint: MECHANICAL FALL HPI: HPI: 89 year old female presents to the emergency department via EMS from residential for altered mental status after being found on floor of her room. The patient's last known well was at 12 PM today and the patient was found on floor at 2 PM. Originally the nursing center said that the patient could not move her left arm and right leg. Also noted that she was minimally responsive to commands and was nonverbal. This is different from her baseline, which is a GCS of 15, verbal, and ambulatory. History of present illness limited secondary to altered mental status/dementia. Review of Systems: Review of Systems: Review of systems limited secondary to altered mental status/dementia Current Medications: Current Meds: Current Medications Medications (Trade) Dose Ordered Sig/Marely Start Time Stop Time Status Last Admin Dose Admin Sodium Chloride 1,000 ml @ 1,000 mls/hr 1X ONCE 01/17/20 15:00 01/17/20 15:59 Allergies: Allergies: Allergies Coded Allergies Type Severity Reaction Last Updated Verified sulfamethoxazole Allergy Severe 07/24/18 Yes trimethoprim Allergy Severe 07/24/18 Yes Penicillins Adverse Reaction Intermediate 05/22/14 Yes Physical Exam: PE: Constitutional: Elderly, well nourished, no acute distress, non-toxic appearance HENT: Normocephalic, atraumatic Eyes: PERRL, EOMI, conjunctiva normal, no discharge Neck: Normal range of motion, no tenderness, supple Lungs & Thorax: No acute respiratory distress. Equal rise and fall of chest bilaterally Abdomen: Soft, no tenderness; pelvis stable and nontender Skin: Warm, dry, no erythema, no rash Back: No tenderness, no CVA tenderness Extremities: No tenderness, ROM intact, no edema Neurologic: GCS of 13, follows vocal commands, opens eyes spontaneously, inappropriate words/incomprehensible words. Psychologic: Limited, judgment abnormal EKG: EKG: @1539, heart rate 53 bpm, CT interval is 208, QT/QTC is 524/494, sinus bradycardia with first-degree AV block, wandering baseline Q waves noted in leads I, aVL and V2. No ST elevations noted. QRS is 108 Radiology/Procedures: Radiology/Procedures: PROCEDURE: CT CODE STROKE HEAD WO Examination: CT CODE STROKE HEAD WO History: Reason: fall, pain, altered mental status / Spl. Instructions: / History: Comparison/Correlation: 10/11/2018 CT head and cervical spine without contrast Findings: Axial images of the head were obtained without contrast. Atrophy is notable. Chronic ischemic changes of white matter noted. Old lacunar infarct involving the left basal ganglia noted. Very small right basal ganglia lacunar infarct. Small lacunar infarct which is probably old in both the high right frontoparietal region in the interval measuring less than 0.5 cm in diameter and best seen on axial image 25. Bony structures are unremarkable. Orbits are unremarkable. Impression: No findings of acute infarct. Consider further evaluation if infarct is a persistent concern. On 01/17/2020 at 3:09 PM, discussed with Dr. Cordoba of the emergency Department. PQRS Compliance Statement: One or more of the following individualized dose reduction techniques were utilized for this examination: 1. Automated exposure control 2. Adjustment of the mA and/or kV according to patient size 3. Use of iterative reconstruction technique Electronically signed by: Kiko Garcia MD (01/17/2020 3:09 PM) [id number] PROCEDURE: CT CERVICAL SPINE WO CONTRAST PQRS Compliance Statement: One or more of the following individualized dose reduction techniques were utilized for this examination: 1. Automated exposure control 2. Adjustment of the mA and/or kV according to patient size 3. Use of iterative reconstruction technique CT CERVICAL SPINE WITHOUT CONTRAST Clinical Indication: Reason: fall, pain, altered mental status / Spl. Instructions: / History: Comparison: None. Technique: Noncontrast helical CT of the cervical spine was performed. Axial, sagittal, and coronal reconstructions were obtained. Findings: There is no evidence of acute fracture or acute malalignment. There are no perched or jumped facet joints. The facet joints are mildly hypertrophic. The vertebral body height and alignment are maintained. There is disc space narrowing and endplate spurring of C5/C6 and C6/C7 and T1/T2. There are spondylitic discs of C2/C3 and C3/C4. There is degenerative change of the TMJ. There is uncinate process hypertrophy of C4/C5 and C5/C6. Visualized soft tissues of the neck demonstrate no significant abnormalities. There are peripheral reticular opacities in the lung apices. IMPRESSION: No acute fracture or malalignment. Electronically signed by: Pelon Oleary MD (01/17/2020 3:42 PM) [id number] PROCEDURE: PORTABLE CHEST 1V Examination: PORTABLE CHEST 1V History: Reason: altered mental status / Spl. Instructions: / History: Comparison/Correlation: 10/11/2018 Portable Chest X-ray Exam Findings: Portable frontal view chest was obtained. Heart size is slightly enlarged. Interstitial thickening lung fischer diffusely again seen. No significant pleural effusion in the interval. No pneumothorax. No definite focal infiltrate. Tortuosity of the thoracic aorta noted. Osteopenia. Impression: No new infiltrate. Diffuse interstitial thickening of lung fischer again seen. Electronically signed by: Kiko Garcia MD (01/17/2020 4:22 PM) [id number] PROCEDURE: PELVIS Examination: PELVIS History: Reason: pain s/p fall / Spl. Instructions: / History: Comparison/Correlation: 07/19/2018 pelvis x-ray exam of 2 views of the right hip Findings: Frontal view of pelvis was obtained with patient supine. Inferior vena cava filter is present. Right lateral mid abdominal surgical clip is present. Left total joint arthroplasty. Right intramedullary femoral sera with associated compression screw noted. Osteopenia noted. Old left pubic ring fractures are present. No definite findings of acute fracture. Impression: Osteopenia. No displaced fracture or bone destruction. Consider further imaging if acute fracture is a persistent concern. Electronically signed by: Kiko Garcia MD (01/17/2020 4:08 PM) [id number] PROCEDURE: CT ANGIOGRAPHY HEAD AND NECK EXAM: CT ANGIOGRAPHY HEAD AND NECK DATE: 01/17/2020 3:31 PM INDICATION: Reason: altered mental status, weakness / Spl. Instructions: / History: TECHNIQUE: CTA angiogram of the head and neck was obtained after IV bolus administration of 75 cc of Omnipaque 350. The images were sent to workstation and multiplanar reconstructions were obtained. Multiplanar reconstruction images to include MIP and 3-D reconstruction images are submitted. One or more of the following dose reduction techniques were utilized: Automated exposure control (AEC), Adjustment of mA and/or kV according to patient size, Use of iterative reconstruction technique such as ASiR, CT scan done according to ALARA and image gently/image wisely COMPARISON: Noncontrast CT head done earlier today. FINDINGS: CTA Head: Atherosclerosis of the cavernous and paraclinoid ICAs with less than 25 percent stenosis. Hypoplastic right A1 segment. Multifocal mild/moderate narrowing of the distal COBY branches. Multifocal moderate to severe narrowing of distal MCA branches. The distal vertebral arteries and basilar artery are patent and normal caliber. Severe narrowing of the left [employer] P1/P2 segment and multifocal moderate to severe narrowing of distal [employer] P2 and P3 branches. CTA Neck: Right carotid: The right common carotid artery is patent and normal caliber. Mild atherosclerosis of the carotid bifurcation. No stenosis of the right internal carotid artery per NASCET criteria. The right external carotid artery is patent. Left carotid: The left common carotid artery is patent and normal caliber. Atherosclerosis of the carotid bifurcation. No stenosis of the left internal carotid artery per NASCET criteria. The left external carotid artery is patent. Right vertebral: The right vertebral artery is patent and normal caliber. Left vertebral: The left vertebral artery is patent and normal caliber. Mild atherosclerosis of the aortic arch. The origins of the brachiocephalic and subclavian arteries are normal. No cervical lymphadenopathy. The thyroid gland is normal. The parotid and submandibular glands are normal. The visualized aerodigestive tract is unremarkable. Moderate multilevel degenerative disc height loss. Multilevel disc protrusions and marginal osteophytes results in multilevel spinal canal stenosis. Multilevel uncovertebral and facet arthrosis with multilevel neural foraminal narrowing. Upper lungs demonstrate interlobular septal thickening, likely interstitial edema. Pulmonary trunk measures 45 mm, which can be seen with pulmonary hypertension. Coronary artery atherosclerotic disease. IMPRESSION: 1. No emergent large vessel occlusion. 2. Extensive intracranial atherosclerotic disease with multifocal moderate to severe narrowing of COBY, MCA, and [employer] branches. 3. Atherosclerosis with no stenosis of the cervical carotid arteries. PQRS Compliance Statement - Stenosis calculations for CT, MR and conventional angiography are based upon measurement of the distal ICA diameter in accordance with the NASCET methodology. Electronically signed by: Carlos Rivera MD (01/17/2020 6:16 PM) [facility] Course & Med Decision Making: Course & Med Decision Making Pertinent Labs and Imaging studies reviewed. (See chart for details) Elderly patient with pmh of dementia presents via EMS from residential with report of altered mental status and being found on floor. GCS 13 upon arrival. NO significant signs of trauma noted. EMS report that patient last know well 2 hours prior. CODE STROKE initiated. No focal deficit noted. CT head without acute process. CT cervical spine also stable. EKG stable. Labs obtained and posted to chart. Ammonia WNL. UA without signs of infection. CXR and pelvis XR stable. CTA head/neck without signs of large vessel occlusion. Patient requiring admission for further evaluation and treatment. Discussed with Dr. Johnson (hospitalist) who is in agreement with admit. Dragon Disclaimer: Erasmo Disclaimer: This electronic medical record was generated, in whole or in part, using a voice recognition dictation system. Departure Departure: Impression: Primary Impression: Altered mental status Qualified Codes: R41.82 - Altered mental status, unspecified Disposition: ADMITTED INPATIENT Admitting Physician: John Johnson Condition: STABLE Referrals: JOHN JOHNSON MD (PCP) Justification of Admission: Justification of Admission: Justification of Admission Dx: Yes Altered Mental Status: Altered Mental Status AKSHAT CORDOBA DO Jan 17, 2020 15:54
--- NOTE | 2020-01-17 16:11 | RAD ---
Examination: PELVIS History: Reason: pain s/p fall / Spl. Instructions: / History: Comparison/Correlation: 07/19/2018 pelvis x-ray exam of 2 views of the right hip Findings: Frontal view of pelvis was obtained with patient supine. Inferior vena cava filter is present. Right lateral mid abdominal surgical clip is present. Left total joint arthroplasty. Right intramedullary femoral sera with associated compression screw noted. Osteopenia noted. Old left pubic ring fractures are present. No definite findings of acute fracture. Impression: Osteopenia. No displaced fracture or bone destruction. Consider further imaging if acute fracture is a persistent concern. Electronically signed by: Kiko Garcia MD (01/17/2020 4:08 PM) [id number]
[2020-01-17] MEDS ORDERED: IOHEXOL 350 MG/ML 100 ML VIAL. IV ONE (16:15)
--- NOTE | 2020-01-17 16:25 | RAD ---
Examination: PORTABLE CHEST 1V History: Reason: altered mental status / Spl. Instructions: / History: Comparison/Correlation: 10/11/2018 Portable Chest X-ray Exam Findings: Portable frontal view chest was obtained. Heart size is slightly enlarged. Interstitial thickening lung fischer diffusely again seen. No significant pleural effusion in the interval. No pneumothorax. No definite focal infiltrate. Tortuosity of the thoracic aorta noted. Osteopenia. Impression: No new infiltrate. Diffuse interstitial thickening of lung fischer again seen. Electronically signed by: Kiko Garcia MD (01/17/2020 4:22 PM) [id number]
[2020-01-17 17:10] LABS: ALBUMIN 3.2 g/dL (3.4-5.0); ALBUMIN/GLOBULIN RATIO 0.8 (1.0-1.7); CALCIUM 9.1 mg/dL (8.5-10.1); GFR 52.4; MAGNESIUM 2.1 mg/dL (1.8-2.4); TOTAL BILIRUBIN 0.3 mg/dL (0.2-1.0); TOTAL PROTEIN 7.3 g/dL (6.4-8.2)
[2020-01-17 17:11] LABS: BASO # 0.2 x10^3/uL (0.0-0.2); BASO % 1 % (0-3); EOS # 0.5 x10^3/uL (0.0-0.7); EOS % 4 % (0-3); HEMATOCRIT 40.7 % (36.0-47.0); HEMOGLOBIN 13.5 g/dL (12.0-15.5); LYMPH # 2.6 x10^3/uL (1.0-4.8); LYMPH % 20 % (24-48); MEAN CORPUSCULAR HEMOGLOBIN 30 pg (25-35); MEAN CORPUSCULAR HGB CONC 33 g/dL (31-37); MEAN CORPUSCULAR VOLUME 92 fL (79-100); MONO # 1.2 x10^3/uL (0.0-1.1); MONO % 9 % (0-9); NEUT # 8.6 x10^3uL (1.8-7.7); NEUT % 66 % (31-73); PLATELET COUNT 284 x10^3/uL (140-400); RED BLOOD COUNT 4.44 x10^6/uL (3.50-5.40); RED CELL DISTRIBUTION WIDTH 14.4 % (11.5-14.5)
[2020-01-17 18:03] LABS: BILIRUBIN,URINE NEG (NEG); CLARITY,URINE HAZY; COLOR,URINE YELLOW; GLUCOSE,URINE NEG (NEG)
[2020-01-17 18:04] LABS: BACTERIA,URINE MANY /HPF (0-FEW); GRANULAR CASTS,URINE OCC /HPF; HYALINE CASTS, URINE FEW /HPF; NITRITE,URINE NEG (NEG); RBC,URINE OCC /HPF (0-2); SQUAMOUS EPITHELIAL CELL,UR FEW /LPF; UROBILINOGEN,URINE 0.2 mg/dL (0.2 mg/dL)
--- NOTE | 2020-01-17 18:19 | RAD ---
EXAM: CT ANGIOGRAPHY HEAD AND NECK DATE: 01/17/2020 3:31 PM INDICATION: Reason: altered mental status, weakness / Spl. Instructions: / History: TECHNIQUE: CTA angiogram of the head and neck was obtained after IV bolus administration of 75 cc of Omnipaque 350. The images were sent to workstation and multiplanar reconstructions were obtained. Multiplanar reconstruction images to include MIP and 3-D reconstruction images are submitted. One or more of the following dose reduction techniques were utilized: Automated exposure control (AEC), Adjustment of mA and/or kV according to patient size, Use of iterative reconstruction technique such as ASiR, CT scan done according to ALARA and image gently/image wisely COMPARISON: Noncontrast CT head done earlier today. FINDINGS: CTA Head: Atherosclerosis of the cavernous and paraclinoid ICAs with less than 25 percent stenosis. Hypoplastic right A1 segment. Multifocal mild/moderate narrowing of the distal COBY branches. Multifocal moderate to severe narrowing of distal MCA branches. The distal vertebral arteries and basilar artery are patent and normal caliber. Severe narrowing of the left [employer] P1/P2 segment and multifocal moderate to severe narrowing of distal [employer] P2 and P3 branches. CTA Neck: Right carotid: The right common carotid artery is patent and normal caliber. Mild atherosclerosis of the carotid bifurcation. No stenosis of the right internal carotid artery per NASCET criteria. The right external carotid artery is patent. Left carotid: The left common carotid artery is patent and normal caliber. Atherosclerosis of the carotid bifurcation. No stenosis of the left internal carotid artery per NASCET criteria. The left external carotid artery is patent. Right vertebral: The right vertebral artery is patent and normal caliber. Left vertebral: The left vertebral artery is patent and normal caliber. Mild atherosclerosis of the aortic arch. The origins of the brachiocephalic and subclavian arteries are normal. No cervical lymphadenopathy. The thyroid gland is normal. The parotid and submandibular glands are normal. The visualized aerodigestive tract is unremarkable. Moderate multilevel degenerative disc height loss. Multilevel disc protrusions and marginal osteophytes results in multilevel spinal canal stenosis. Multilevel uncovertebral and facet arthrosis with multilevel neural foraminal narrowing. Upper lungs demonstrate interlobular septal thickening, likely interstitial edema. Pulmonary trunk measures 45 mm, which can be seen with pulmonary hypertension. Coronary artery atherosclerotic disease. IMPRESSION: 1. No emergent large vessel occlusion. 2. Extensive intracranial atherosclerotic disease with multifocal moderate to severe narrowing of COBY, MCA, and [employer] branches. 3. Atherosclerosis with no stenosis of the cervical carotid arteries. PQRS Compliance Statement - Stenosis calculations for CT, MR and conventional angiography are based upon measurement of the distal ICA diameter in accordance with the NASCET methodology. Electronically signed by: Carlos Rivera MD (01/17/2020 6:16 PM) [facility]
[2020-01-17] MEDS ORDERED: ONDANSETRON PF 4 MG/2 ML VIAL. IVP PRN (18:45)
--- NOTE | 2020-01-17 19:15 | NUR ---
The patient, TJ FRANCO, 89 y/o, F admitted by JOHN MAZARIEGOS MD, to room 109, was given written information regarding hospital policies, unit procedures and contact persons. Pt placed on telemetry, changed into a gown and made comfortable. Valuables were checked and left with the patient. Medical and physical needs assessed and medication reviewed. Pt's daughter and Karley from [place], confirmed history and needs by telephone. Will continue to monitor.
[2020-01-17] MEDS ORDERED: ACET325T21 PO (20:38)
[2020-01-17] MEDS ORDERED: MAGN400O7 PO (20:38)
[2020-01-17] MEDS ORDERED: AZIT250T6 PO (20:38)
[2020-01-17] MEDS ORDERED: NIFE30TA15 PO (20:38)
[2020-01-17] MEDS ORDERED: METO50TA6 PO (20:38)
[2020-01-17] MEDS ORDERED: ACET500T68 PO (20:38)
[2020-01-17] MEDS ORDERED: MIRT15TA3 PO (20:38)
[2020-01-17] MEDS ORDERED: MAGNESIUM HYDROXIDE 2,400 MG/30 ML ORAL.SUSP. PO PRN (21:00)
[2020-01-17] MEDS: METOPROLOL TART IMMED RELEASE 50 MG TABLET PO SCH (21:30)
[2020-01-17] MEDS: MIRTAZAPINE 15 MG TABLET PO SCH (21:45)
[2020-01-17] MEDS: ACETAMINOPHEN 325 MG TABLET PO PRN (21:45)
[2020-01-17] MEDS: MEMANTINE 10 MG TABLET. PO SCH (21:47)
[2020-01-17 23:00] VITALS: BP 139/73
[2020-01-18] VITALS (7 sets, daily range): BP systolic 117–194; BP diastolic 50–79
--- NOTE | 2020-01-18 05:59 | NUR ---
Pt states she has tingling in her hands all the time. Radial pulses difficult to palpate. Orthostatic pressures assessed. Pt struggled to remain standing for duration of blood pressure assessment; required sitting alf through, as her legs buckled. Lying blood pressure 170/67, Sitting pressure 194/68, standing pressure 117/50. Pt stated she felt dizzy during standing pressure assessment. Pt linens changed and pt made comfortable. Will continue to monitor.
[2020-01-18] MEDS: ACETAMINOPHEN 325 MG TABLET PO PRN ×3 (06:24→17:00)
[2020-01-18] MEDS ORDERED: LEVOTHYROXINE 50 MCG TABLET PO SCH (07:30)
[2020-01-18] MEDS: AZITHROMYCIN 250 MG TABLET. PO SCH (08:29)
[2020-01-18] MEDS: CYANOCOBALAMIN (VITAMIN B-12) 1,000 MCG TABLET. PO SCH (08:29)
[2020-01-18] MEDS: CALCIUM CARBONATE 500 MG TABLET PO SCH (08:29)
[2020-01-18] MEDS: LACTOBACILLUS RHAMNOSUS GG 1 CAPSULE. PO SCH ×2 (08:29→20:19)
[2020-01-18] MEDS: METOPROLOL TART IMMED RELEASE 50 MG TABLET PO SCH (08:30)
[2020-01-18] MEDS: SENNOSIDES 8.6 MG TABLET PO SCH (08:30)
[2020-01-18] MEDS: ASPIRIN 325 MG TABLET PO SCH (08:30)
[2020-01-18] MEDS: CITALOPRAM 10 MG TABLET. PO SCH (08:30)
[2020-01-18] MEDS: MEMANTINE 10 MG TABLET. PO SCH ×2 (08:30→20:19)
[2020-01-18] MEDS: AMIODARONE HCL 200 MG TABLET PO SCH (08:30)
[2020-01-18 08:46] LABS: ALBUMIN 3.1 g/dL (3.4-5.0); ALBUMIN/GLOBULIN RATIO 0.8 (1.0-1.7); CALCIUM 9.1 mg/dL (8.5-10.1); GFR 52.4; POTASSIUM 4.3 mmol/L (3.5-5.1); TOTAL BILIRUBIN 0.5 mg/dL (0.2-1.0); TOTAL PROTEIN 7.1 g/dL (6.4-8.2)
[2020-01-18 09:36] LABS: BASO # 0.1 x10^3/uL (0.0-0.2); BASO % 2 % (0-3); EOS # 0.4 x10^3/uL (0.0-0.7); EOS % 5 % (0-3); HEMATOCRIT 40.5 % (36.0-47.0); HEMOGLOBIN 13.7 g/dL (12.0-15.5); LYMPH # 1.7 x10^3/uL (1.0-4.8); LYMPH % 20 % (24-48); MEAN CORPUSCULAR HEMOGLOBIN 31 pg (25-35); MEAN CORPUSCULAR HGB CONC 34 g/dL (31-37); MEAN CORPUSCULAR VOLUME 91 fL (79-100); MONO # 0.7 x10^3/uL (0.0-1.1); MONO % 9 % (0-9); NEUT # 5.3 x10^3uL (1.8-7.7); NEUT % 65 % (31-73); PLATELET COUNT 267 x10^3/uL (140-400); RED BLOOD COUNT 4.46 x10^6/uL (3.50-5.40); RED CELL DISTRIBUTION WIDTH 14.4 % (11.5-14.5); WHITE BLOOD COUNT 8.3 x10^3/uL (4.0-11.0)
--- NOTE | 2020-01-18 11:19 | HP ---
ADMIT DATE: 01/17/2020 HISTORY OF PRESENT ILLNESS: The patient is an 89-year-old female patient, a resident at [facility] and [facility], who apparently was brought to the Emergency Room as she was found by nursing staff down on the floor, unresponsive. She was also nonverbal when she was found down, which is normally different from her baseline, which is a [place] coma scale of 15. She is verbal, although not really ambulatory. By the time she arrived to the Emergency Room, she was minimally responsive to verbal commands and can repeat her name beside this. She was saying comprehensible words initially. She was extensively investigated and her EKG showed that she was in sinus bradycardia with heart rate 153. She has also had first-degree AV block, wandering pacemaker and Q-waves were noted in lead I, aVL, V2, non-ST segment elevation. No ST segment elevation was noted. She has had a CT scan of the head without contrast. No finding of acute infarct or intraparenchymal hemorrhage. CT scan of the cervical spine also showed no evidence of acute fracture or acute malalignment. The patient also had a chest x-ray which showed no new infiltrate, diffuse interstitial thickening of lung fischer. She also had x-ray of the pelvis, which showed no displaced fracture or bone destruction. As she was brought as a code stroke, she also had a CT angiography of the head and neck, which basically showed no emergent large vessel occlusion, extensive intracranial atherosclerotic disease with multifocal [id number] narrowing of the anterior cerebral artery, middle cerebral artery and posterior cerebral artery branches, atherosclerosis with no stenosis of the cervical carotid arteries. Given the fall and altered mental status, a decision was made to admit her for observation, as she also had to check her orthostatics and monitor her heart rate as she was bradycardic when she arrived. By the time she arrived to the hospital, she was awake, alert, responding appropriately. PAST MEDICAL HISTORY: Significant for hypertension, hyperlipidemia, atrial fibrillation, rate controlled, not anticoagulated. She is known to have hypothyroidism, osteoarthritis, osteoporosis, anemia as well as dementia. PAST SURGICAL HISTORY: Significant for left hip surgery, right hip nailing, right inguinal hernia repair, bladder sling, and left knee replacement. FAMILY HISTORY: Noncontributory. SOCIAL HISTORY: She is . Her has recently. She is currently residing at [facility]. She does not smoke, drink alcohol or use any recreational drugs. ALLERGIES: SHE IS ALLERGIC TO PENICILLIN, SULFAMETHOXAZOLE AND TRIMETHOPRIM. MEDICATIONS: She is on following medications: Azithromycin, started yesterday as she was diagnosed with Streptococcus viridans urinary tract infection, albuterol sulfate 2.5 mg by nebulizer 4 times a day, ferrous sulfate 325 mg once a day, amiodarone 200 mg once a day, metoprolol tartrate 25 mg twice a day. She is actually on metoprolol tartrate 50 mg twice a day, nifedipine 30 mg extended release 1 tablet once a day, lisinopril 10 mg once a day. She is on aspirin 325 mg once a day, tramadol 50 mg every 6 hours, Tylenol 650 mg every 6 hours, citalopram hydrobromide for Celexa 10 mg once a day, mirtazapine 22.5 mg daily, mirtazapine 15 mg at bedtime, Namenda 10 mg twice a day, calcium carbonate 600 mg once a day, moxifloxacin or Vigamox 1 drop to both eyes 3 times a day and prednisolone acetate 1 drop to both eyes 3 times a day. She is on nepafenac 1 drop to both eyes 3 times a day. She is on magnesium hydroxide for milk of magnesia 30 mL p.o. daily p.r.n. for constipation, polyethylene glycol 17 grams daily, senna 1 tablet once a day, ondansetron 4 mg p.o. every 6 hours as needed, dronabinol 2.5 mg twice a day, Protonix 40 mg once a day, levothyroxine sodium 50 mcg once a day, lidocaine patch 1 patch topically as needed, ascorbic acid 500 mg once a day, vitamin D 5000 units once a day, multivitamin 1 tablet once a day. PHYSICAL EXAMINATION: GENERAL: On arrival to the Emergency Room, she looked well and was clearly in no apparent respiratory distress. She was pale, but no jaundice, cyanosis or thyromegaly. No jugular venous distention. No limb edema. VITAL SIGNS: Her heart rate was 64, blood pressures 207/77, temperature was 97.4, respiratory rate was 18 and oxygen saturation was 97%. HEAD, EYES, EARS, NOSE AND THROAT: Showed normocephalic, atraumatic. NECK: Supple. HEART: Normal first and second heart sounds. No gallop, rub or murmur. CHEST: Clear to auscultation. No crepitation or rhonchi. ABDOMEN: Distended, soft, nontender. NEUROLOGIC: She is profoundly demented, but without any obvious lateralizing sign. All her cranial nerves intact. EXTREMITIES: She moves extremities without difficulty. LABORATORY DATA: Her lab work on arrival showed a white cell count of 13,000, hemoglobin 13.5, hematocrit 40, MCV 92, and platelet count of 284,000. Her serum sodium was 142, potassium 4, chloride 104, bicarbonate 25, anion gap of 13, BUN 16, creatinine 1, estimated GFR was 52 mL per minute. Her glucose was 100, calcium was 9.1, magnesium was 2.1, estimated GFR was 16 mL per minute. Her glucose was 100, calcium was 9.1, magnesium 2.1. Total bilirubin, AST, ALT, alkaline phosphatase were normal. Total protein was 7.3, albumin 3.2. Her prothrombin time, INR and aPTT are all normal. Her white cell count was slightly elevated at 13,000, hemoglobin 13.5, hematocrit 40.7, MCV 92, and platelet count of 284,000. Her urinalysis was essentially unremarkable. She has had multiple imaging studies including CT scan of the head and cervical spine and CT scan of the head showed that she has chronic ischemic changes white matter, noted old lacunar infarct involving the left basal ganglia, noted very small right basal ganglia lacunar infarct. She has small lacunar infarct that is probably old, but high right frontoparietal region. Orbits are unremarkable. The CT scan of the cervical spine showed no acute fracture or malalignment. Chest x-ray showed no new infiltrate, diffuse interstitial thickening of the lung fischer again noted. X-ray of the pelvis showed that the patient has left total hip arthroplasty. She has also right intramedullary femoral sera with associated compression screw noted. She has osteopenia noted. Old left pubic ring fracture present. No definite finding of acute fracture. She also had a CT angio of the head and neck, which basically showed no emergent large vessel occlusion. She has extensive intracranial atherosclerotic disease with multifocal jiabrmov-[id number]-iusrtq narrowing of the anterior cerebral artery, middle cerebral artery and posterior cerebral artery branches, and she has also aortic sclerosis with no stenosis of the cervical carotid arteries. ASSESSMENT AND PLAN: The patient was admitted. We resumed all her medications. We will check her orthostatics as she has multiple antihypertensive medications that might have contributed to her syncopal episode. She has also had sinus bradycardia. We will monitor that, and if she shows any evidence of high-grade block, we will consult a working foreman. JOHN MAZARIEGOS MD DR: CRISTO/dayan JOB#: [id number] / [id number]
--- NOTE | 2020-01-18 11:33 | PN ---
DATE: SUBJECTIVE: The patient is resting, slightly propped up in bed, in no apparent distress. She is awake, alert. On questioning her, she denied any complaint. In particular, denied any chest pain, shortness of breath. She continued to complain of some pain in her right hip joint, it has been there before and also knee joints. However, imaging studies showed no evidence of any fracture. We did check her orthostatics and she had marked postural hypotension, her systolic pressure dropped from 170 to 117. She continued to have also sinus bradycardia with the heart rate in the lower 40s. She is on amiodarone, metoprolol, nifedipine as well as lisinopril. PHYSICAL EXAMINATION: GENERAL: When I examined her, she was pale, no jaundice, cyanosis or thyromegaly. No jugular venous distention. No limb edema. VITAL SIGNS: Her heart rate was 45, blood pressure was 170/67, temperature was 97.8, respiratory rate was 16, and oxygen saturation was 96%. HEAD, EYES, EARS, NOSE, AND THROAT: Normocephalic, atraumatic. NECK: Supple. HEART: Normal first and second heart sounds. No gallop or murmur. CHEST: Clear to auscultation. No crepitation or rhonchi. ABDOMEN: Distended, soft, nontender. NEUROLOGIC: She is awake, alert, responding appropriately. All cranial nerves intact. She moves her upper extremities to a much greater extent than lower extremities. She is mostly bedbound, chair bound. Her intake and output were incompletely recorded. LABORATORY DATA: Her lab work this morning showed a white cell count of 8000, hemoglobin 13.7, hematocrit 40, MCV 91, and platelet count 267,000. Serum sodium was 140, potassium 4.3, chloride 105, bicarbonate 28, anion gap of 7, BUN 11, creatinine 1, estimated GFR was 32 mL per minute. Her glucose was 88, calcium was 9.1. Total bilirubin, AST, ALT, alkaline phosphatase were normal. Total protein was 7.1, albumin 3.1. ASSESSMENT: Altered mental status, likely syncope. She was found on the floor, minimally responsive, according to the nursing staff at [place], extensive investigation so far was unrevealing; however, she does have marked postural hypotension and sinus bradycardia, which might be the reason for her syncopal episode and fall. She has marked postural hypotension, her systolic pressure dropped from 170 to 117. She is on multiple antihypertensive medications including lisinopril, amlodipine, metoprolol. She is also on amiodarone. I have already consulted the insurance marketing specialist to assist in evaluation and treatment of this patient. JOHN MAZARIEGOS MD DR: CRISTO/dayan JOB#: [id number] / [id number]
[2020-01-18] MEDS ORDERED: ACETAMINOPHEN 325 MG TABLET PO PRN (19:30)
[2020-01-18] MEDS: MIRTAZAPINE 15 MG TABLET PO SCH (20:20)
[2020-01-19] MEDS: LEVOTHYROXINE 50 MCG TABLET PO SCH (05:03)
[2020-01-19 05:28] VITALS: BP 152/67
[2020-01-19 06:38] LABS: CALCIUM 9.1 mg/dL (8.5-10.1); GFR 52.4; POTASSIUM 3.5 mmol/L (3.5-5.1)
--- NOTE | 2020-01-19 08:33 | PDOC2 ---
CARDIAC CONSULT DATE OF CONSULT DOS: DATE: 01/19/20 TIME: 08:14 REASON FOR CONSULT Reason for Consult syncope bradycardia REFERRING PHYSICIAN Referring Physician Dr. Johnson SOURCE Source: Chart review, Patient HPI History of Present Illness This is a 89 yo female who presented secondary to being found down at the nursing facility. Patient was found to be minimally responsive to commands, non- verbal, and was noted with left-sided weakness. CT head without acute findings. Was noted to be bradycardic, which prompted this consult. She denies any chest pain, palpitations, dizziness, diaphoresis or nausea/vomiting. PAST MEDICAL HISTORY Cardiovascular: AFIB, HTN, hyperipidemia CENTRAL NERVOUS SYSTEM: Dementia GI: GERD Heme/Onc: Anemia NOS, Other (DVT) Musculoskeletal: Osteoarthritis Endocrine: Hypothyroidism PAST SURGICAL HISTORY Past Surgical History: Hernia Repair, Total hip replacement (right ), Other (IVC filter ) FAMILY HISTORY Family History: Hypertension SOCIAL HISTORY Smoke: No ALCOHOL: none Drugs: None Lives: [facility] CURRENT MEDICATIONS Current Medications Current Medications Sodium Chloride 1,000 ml @ 1,000 mls/hr 1X ONCE IV ; Start 01/17/20 at 15:00; Stop 01/17/20 at 15:59; Status DC Iohexol (Omnipaque 350 Mg/ml) 100 ml 1X ONCE IV ; Start 01/17/20 at 16:15; Stop 01/17/20 at 16:16; Status DC Ondansetron HCl (Zofran) 4 mg PRN Q4HRS PRN IVP NAUSEA/VOMITING; Start 01/17/20 at 18:45; Stop 01/18/20 at 18:44; Status DC Acetaminophen (Tylenol) 650 mg PRN Q4HRS PRN PO FEVER > 100.3'F Last administered on 01/18/20at 17:00; Start 01/17/20 at 18:45; Stop 01/18/20 at 18:44; Status DC Amiodarone HCl (Cordarone) 200 mg DAILY PO Last administered on 01/18/20at 08:30; Start 01/18/20 at 09:00 Aspirin (Kaitlyn Aspirin) 325 mg DAILY PO Last administered on 01/18/20at 08:30; Start 01/18/20 at 09:00 Azithromycin (Zithromax) 250 mg DAILY PO Last administered on 01/18/20at 08:29; Start 01/18/20 at 09:00 Citalopram Hydrobromide (CeleXA) 10 mg DAILY PO Last administered on 01/18/20at 08:30; Start 01/18/20 at 09:00 Cyanocobalamin (Vitamin B-12) 1,000 mcg DAILY PO Last administered on 01/18/20at 08:29; Start 01/18/20 at 09:00 Levothyroxine Sodium (Synthroid) 50 mcg DAILYAC PO ; Start 01/18/20 at 07:30; Stop 01/18/20 at 07:20; Status DC Magnesium Hydroxide (Milk Of Magnesia) 2,400 mg PRN DAILY PRN PO CONSTIPATION; Start 01/17/20 at 21:00 Memantine (Namenda) 10 mg BID PO Last administered on 01/18/20at 20:19; Start 01/17/20 at 21:30 Metoprolol Tartrate (Lopressor) 50 mg BID PO Last administered on 01/18/20at 08:30; Start 01/17/20 at 21:30; Stop 01/18/20 at 13:04; Status DC Mirtazapine (Remeron) 15 mg QHS PO Last administered on 01/18/20at 20:20; Start 01/17/20 at 21:30 Sennosides (Senna) 8.6 mg DAILY PO ; Start 01/18/20 at 09:00 Calcium Carbonate/ Glycine (Oscal) 500 mg DAILY PO Last administered on 01/18/20at 08:29; Start 01/18/20 at 09:00 Nifedipine (Procardia Xl) 30 mg DAILY PO Last administered on 01/18/20at 08:29; Start 01/18/20 at 09:00 Levothyroxine Sodium (Synthroid) 50 mcg DAILY06 PO Last administered on 01/19/20at 05:03; Start 01/19/20 at 06:00 Lactobacillus Rhamnosus (Culturelle) 1 cap BID PO Last administered on 01/18/20at 20:19; Start 01/18/20 at 09:00 Acetaminophen (Tylenol) 650 mg PRN Q6HRS PRN PO MILD PAIN / TEMP > 100.3'F; Start 01/18/20 at 19:30 Active Scripts Active Reported Azithromycin Tablet (Azithromycin) 250 Mg Tablet 250 Mg PO DAILY 4 Days Mirtazapine 15 Mg Tablet 1 Tab PO QHS Nifedipine Er (Nifedipine) 30 Mg Tablet.er 1 Tab PO DAILY Milk Of Magnesia (Magnesium Hydroxide) 400 Mg/5 Ml Oral.susp 400 Mg PO PRN DAILY Metoprolol Tartrate 50 Mg Tablet 1 Tab PO BID Acetaminophen 500 Mg Tablet 1 Tab PO DAILY PRN 30 Days Acetaminophen 325 Mg Tablet 2 Tab PO PRN Q6HRS PRN 24 Days Lidopatch (Lidocaine/Menthol) 1 Each Adh..patch 1 Each TP PRN DAILY PRN apply to right hip as needed for pain Milk Of Magnesia (Magnesium Hydroxide) 400 Mg/5 Ml Oral.susp 30 Ml PO PRN DAILY PRN Nevanac (Nepafenac) 3 Ml Drops.susp 1 Drop OS TID brought from MD give drops until gone Prednisolone Acetate 5 Ml Drops.susp 1 Drop OS TID brought from MD give drops until gone Vigamox (Moxifloxacin Hcl) 3 Ml Drops 1 Drop OS TID brought from MD Give drops until gone Calcium Carbonate 600 Mg Tablet 600 Mg PO DAILY Albuterol Sulfate Neb Soln (Albuterol Sulfate) 2.5 Mg/3 Ml Vial.neb 1 Vial NEB PRN QID PRN Amiodarone Hcl 200 Mg Tablet 1 Tab PO DAILY Metoprolol Tartrate 25 Mg Tablet 1 Tab PO BID Lisinopril 10 Mg Tablet 1 Tab PO DAILY Zofran (Ondansetron Hcl) 4 Mg Tablet 4 Mg PO PRN Q6HRS PRN Remeron (Mirtazapine) 15 Mg Tablet 22.5 Mg PO DAILY Tramadol Hcl (Tramadol HCl) 50 Mg Tablet 50 Mg PO PRN Q6HRS PRN Aspirin 325 Mg Tablet 325 Mg PO DAILY Senna (Sennosides) 8.6 Mg Tablet 8.6 Mg PO DAILY Miralax (Polyethylene Glycol 3350) 17 Gm Powd.pack 1 Packet PO DAILY Multivitamins (Multivitamin) 1 Each Tablet 1 Tab PO DAILY Namenda (Memantine Hcl) 10 Mg Tablet 1 Tab PO BID Ferrous Sulfate 325 Mg Tablet 1 Tab PO DAILY Marinol (Dronabinol) 2.5 Mg Capsule 2.5 Mg PO BID Vitamin B-12 (Cyanocobalamin (Vitamin B-12)) 1,000 Mcg Tablet 1 Tab PO DAILY Vitamin D3 (Cholecalciferol (Vitamin D3)) 5,000 Unit Tablet 1 Tab PO DAILY Protonix (Pantoprazole Sodium) 40 Mg Tablet. 1 Tab PO DAILY Levothyroxine Sodium 50 Mcg Tablet 50 Mcg PO DAILYAC Celexa (Citalopram Hydrobromide) 10 Mg Tablet 10 Mg PO DAILY Vitamin C (Ascorbic Acid) 500 Mg Tablet.er 500 Mg PO DAILY ALLERGIES Allergies: Coded Allergies: sulfamethoxazole (Verified Allergy, Severe, 07/24/18) trimethoprim (Verified Allergy, Severe, 07/24/18) Penicillins (Verified Adverse Reaction, Intermediate, 05/22/14) ROS Review of Systems 14 point ROS conducted with pertinent positives noted above in HPI PHYSICAL EXAM General: Alert, Cooperative, No acute distress Lungs: Clear to auscultation, Normal air movement Heart: Regular rate (SB) Abdomen: Soft Extremities: No edema, Normal pulses Skin: No rashes, No breakdown Neuro: Normal speech, Sensation intact Psych/Mental Status: Mood NL MUSCULOSKELETAL: Osteoarthritic changes both hands VITALS Vital Signs Vital Signs Date Time Temp Pulse Resp B/P (MAP) Pulse Ox O2 Delivery O2 Flow Rate FiO2 01/19/20 05:28 97.8 55 18 152/67 (95) 97 Room Air LABS LABS Laboratory Tests Test 01/17/20 15:33 01/17/20 15:34 01/17/20 17:31 01/18/20 07:40 Glucose (Fingerstick) 100 mg/dL (70-99) White Blood Count 13.0 x10^3/uL (4.0-11.0) 8.3 x10^3/uL (4.0-11.0) Red Blood Count 4.44 x10^6/uL (3.50-5.40) 4.46 x10^6/uL (3.50-5.40) Hemoglobin 13.5 g/dL (12.0-15.5) 13.7 g/dL (12.0-15.5) Hematocrit 40.7 % (36.0-47.0) 40.5 % (36.0-47.0) Mean Corpuscular Volume 92 fL (79-100) 91 fL (79-100) Mean Corpuscular Hemoglobin 30 pg (25-35) 31 pg (25-35) Mean Corpuscular Hemoglobin Concent 33 g/dL (31-37) 34 g/dL (31-37) Red Cell Distribution Width 14.4 % (11.5-14.5) 14.4 % (11.5-14.5) Platelet Count 284 x10^3/uL (140-400) 267 x10^3/uL (140-400) Neutrophils (%) (Auto) 66 % (31-73) 65 % (31-73) Lymphocytes (%) (Auto) 20 % (24-48) 20 % (24-48) Monocytes (%) (Auto) 9 % (0-9) 9 % (0-9) Eosinophils (%) (Auto) 4 % (0-3) 5 % (0-3) Basophils (%) (Auto) 1 % (0-3) 2 % (0-3) Neutrophils # (Auto) 8.6 x10^3uL (1.8-7.7) 5.3 x10^3uL (1.8-7.7) Lymphocytes # (Auto) 2.6 x10^3/uL (1.0-4.8) 1.7 x10^3/uL (1.0-4.8) Monocytes # (Auto) 1.2 x10^3/uL (0.0-1.1) 0.7 x10^3/uL (0.0-1.1) Eosinophils # (Auto) 0.5 x10^3/uL (0.0-0.7) 0.4 x10^3/uL (0.0-0.7) Basophils # (Auto) 0.2 x10^3/uL (0.0-0.2) 0.1 x10^3/uL (0.0-0.2) Prothrombin Time 10.4 SEC (9.4-11.4) Prothromb Time International Ratio 1.0 (0.9-1.1) Activated Partial Thromboplast Time 22 SEC (23-33) Sodium Level 142 mmol/L (136-145) 140 mmol/L (136-145) Potassium Level 4.0 mmol/L (3.5-5.1) 4.3 mmol/L (3.5-5.1) Chloride Level 104 mmol/L (98-107) 105 mmol/L (98-107) Carbon Dioxide Level 25 mmol/L (21-32) 28 mmol/L (21-32) Anion Gap 13 (6-14) 7 (6-14) Blood Urea Nitrogen 16 mg/dL (7-20) 11 mg/dL (7-20) Creatinine 1.0 mg/dL (0.6-1.0) 1.0 mg/dL (0.6-1.0) Estimated GFR (Cockcroft-Gault) 52.4 52.4 BUN/Creatinine Ratio 16 (6-20) 11 (6-20) Glucose Level 100 mg/dL (70-99) 88 mg/dL (70-99) Calcium Level 9.1 mg/dL (8.5-10.1) 9.1 mg/dL (8.5-10.1) Magnesium Level 2.1 mg/dL (1.8-2.4) Total Bilirubin 0.3 mg/dL (0.2-1.0) 0.5 mg/dL (0.2-1.0) Aspartate Amino Transf (AST/SGOT) 18 U/L (15-37) 28 U/L (15-37) Alanine Aminotransferase (ALT/SGPT) 17 U/L (14-59) 16 U/L (14-59) Alkaline Phosphatase 90 U/L (46-116) 91 U/L (46-116) Ammonia < 10 mcmol/L (11-34) Creatine Kinase 38 U/L (26-192) Creatine Kinase MB (Mass) 0.5 ng/mL (0.0-3.6) Creatine Kinase MB Relative Index 1.3 % (0-4) Troponin I Quantitative < 0.017 ng/mL (0-0.055) ZR-Znc-M-Type Natriuretic Peptide 981 pg/mL (0-449) Total Protein 7.3 g/dL (6.4-8.2) 7.1 g/dL (6.4-8.2) Albumin 3.2 g/dL (3.4-5.0) 3.1 g/dL (3.4-5.0) Albumin/Globulin Ratio 0.8 (1.0-1.7) 0.8 (1.0-1.7) Urine Collection Type Unknown Urine Color Yellow Urine Clarity Hazy Urine pH 5.5 Urine Specific [place] 1.015 Urine Protein Neg (NEG-TRACE) Urine Glucose (UA) Neg mg/dL (NEG) Urine Ketones (Stick) Neg mg/dL (NEG) Urine Blood Neg (NEG) Urine Nitrite Neg (NEG) Urine Bilirubin Neg (NEG) Urine Urobilinogen Dipstick 0.2 mg/dL (0.2 mg/dL) Urine Leukocyte Esterase Neg (NEG) Urine RBC Occ /HPF (0-2) Urine WBC 5-10 /HPF (0-4) Urine Squamous Epithelial Cells Few /LPF Urine Bacteria Many /HPF (0-FEW) Urine Hyaline Casts Few /HPF Urine Granular Casts Occ /HPF Test 01/19/20 05:55 Sodium Level 143 mmol/L (136-145) Potassium Level 3.5 mmol/L (3.5-5.1) Chloride Level 105 mmol/L (98-107) Carbon Dioxide Level 30 mmol/L (21-32) Anion Gap 8 (6-14) Blood Urea Nitrogen 13 mg/dL (7-20) Creatinine 1.0 mg/dL (0.6-1.0) Estimated GFR (Cockcroft-Gault) 52.4 Glucose Level 93 mg/dL (70-99) Calcium Level 9.1 mg/dL (8.5-10.1) ECHOCARDIOGRAM Echocardiogram <Conclusion> The left ventricular systolic function is normal. The Ejection Fraction is 65-70%. There is normal LV segmental wall motion. Transmitral Doppler flow pattern is Grade II-pseudonormal filling dynamics. Moderate aortic regurgitation. Mild to moderate mitral regurgitation. Mild tricuspid regurgitation. There is moderate pulmonary hypertension. The PA pressure was estimated at 59 mmHg. There is no evidence of significant pericardial effusion. DATE: 07/05/18 1232 ASSESSMENT/PLAN Assessment/Plan 1. Altered mental status 2. ? Syncopal episode; event unclear as patient was found down and unable to recall events 3. Bradycardia, sinus. Lowest 42 overnight. No pauses. Appropriated chronotropic response 4. Paroxysmal AFIB; Maintaining SR/SB. On metoprolol for rate control and Amiodarone for rhythm maintenance 5. Accelerated hypertension; now better controlled 6. Orthostatic hypotension 7. Hyperlipidemia 8. Hypothyroidism 9. Dementia Recommendations Stop Procardia Resume metoprolol at 25mg BID and monitor for bradycardia Continue Amiodarone for rhythm maintenance ASA therapy. Poor cadidate for OAC given fall risk, dementia, comorbidities. Repeat orthos Compression stocking TSH level Consider outpatient event monitor Supportive care MIRA,ABELINO SALES DEVELOPER Jan 19, 2020 08:33
[2020-01-19] MEDS: AMIODARONE HCL 200 MG TABLET PO SCH (09:06)
[2020-01-19] MEDS: CYANOCOBALAMIN (VITAMIN B-12) 1,000 MCG TABLET. PO SCH (09:06)
[2020-01-19] MEDS: MEMANTINE 10 MG TABLET. PO SCH ×2 (09:06→20:32)
[2020-01-19] MEDS: CALCIUM CARBONATE 500 MG TABLET PO SCH (09:06)
[2020-01-19] MEDS: CITALOPRAM 10 MG TABLET. PO SCH (09:06)
[2020-01-19] MEDS: AZITHROMYCIN 250 MG TABLET. PO SCH (09:06)
[2020-01-19] MEDS: SENNOSIDES 8.6 MG TABLET PO SCH (09:06)
[2020-01-19] MEDS: METOPROLOL TART IMMED RELEASE 25 MG TABLET PO SCH ×2 (09:06→20:32)
[2020-01-19] MEDS: LACTOBACILLUS RHAMNOSUS GG 1 CAPSULE. PO SCH ×2 (09:07→20:32)
[2020-01-19] MEDS: ASPIRIN 325 MG TABLET PO SCH (09:07)
[2020-01-19 10:55] VITALS: BP 167/78
[2020-01-19 10:56] VITALS: BP_SYST 182
--- NOTE | 2020-01-19 14:01 | PN ---
DATE: SUBJECTIVE: The patient is resting, slightly propped up, sleeping comfortably, in no apparent distress. She apparently managed to walk with physical therapy to the bathroom and back. She was seen by the Cardiology team and her nifedipine was discontinued. Her metoprolol was cut down as she has marked bradycardia, especially at night time. We did check her orthostatics and there is no postural hypotension. The Cardiology nurse practitioner recommended a heart monitor if it is allowed at the custodial and to keep her one more night for evaluate the effect of adjustment of her medication. PHYSICAL EXAMINATION: GENERAL: When I saw her this afternoon, she looked well and was clearly in no apparent respiratory distress. No pallor, jaundice, cyanosis or thyromegaly. No jugular venous distention. No limb edema. VITAL SIGNS: Her heart rate was 56, blood pressure was 167/78, temperature was 98, respiratory rate 20, and oxygen saturation was 97% on room air. HEENT: Showed normocephalic, atraumatic. NECK: Supple. HEART: Showed normal first and second heart sounds. No gallop or murmur. CHEST: Clear to auscultation. No crepitation or rhonchi. ABDOMEN: Distended, soft, nontender. NEUROLOGIC: She is demented, but without any obvious lateralizing sign. She moves all extremities without difficulty. She requires 2-person assist, but she is mostly bedbound, chair bound. Her intake was 600 and output was 1050. LABORATORY DATA: As of this morning, her serum sodium 143, potassium 3.5, chloride 105, bicarbonate 30, anion gap of 8, BUN 13, creatinine 1, estimated GFR was 52 mL per minute. Her glucose was 93, calcium was 9.1. ASSESSMENT: Syncopal episode with marked postural hypotension improved, sinus bradycardia for which her metoprolol was cut down to 25 twice a day. Other medical problems include hypertension, hyperlipidemia, atrial fibrillation, rate controlled and anticoagulated, hypothyroidism, osteoarthritis, osteoporosis, anemia as well as dementia. JOHN MAZARIEGOS MD DR: CRISTO/dayan JOB#: [id number] / [id number]
[2020-01-19 15:27] VITALS: BP 138/84
--- NOTE | 2020-01-19 17:41 | NUR ---
NURSING NOTE PT WAS IN THE BED THIS AM UPON ASSESSMENT AND MEDICATION ADMINISTRATION. PT WAS ALERT TO SELF ONLY THIS AM. PT IS CALM AND COOPERATIVE, TAKES HER MEDS WHOLE. CARDIOLOGY DECREASED HER METOPROLOL TO 25MG. STATES SHE MAY NEED OUTPATIENT EVENT MONITOR AND WILL SEE PT TOMORROW FOR FURTHER EVALUATION. PT WAS ORTHOSTATIC YESTERDAY, REPEAT ORTHO'S TODAY WERE MUCH IMPROVED. PT HAD SHOWER TODAY AND WORKED WITH PT/OT. PT DID HAVE A BM TODAY. WILL CONTINUE TO MONITOR. JUDD CARDOZO.
[2020-01-19 19:43] VITALS: BP 168/70
[2020-01-19] MEDS: MIRTAZAPINE 15 MG TABLET PO SCH (20:32)
[2020-01-19 23:01] VITALS: BP 178/64
--- NOTE | 2020-01-19 23:10 | NUR ---
Pt's B/P elevated on recheck. Manual B/P obtained 178/64 HR: 62. Dr. Johnson notified, no new orders at this time.
[2020-01-20] MEDS: LEVOTHYROXINE 50 MCG TABLET PO SCH (05:46)
[2020-01-20 06:29] VITALS: BP 142/78
[2020-01-20] MEDS: CYANOCOBALAMIN (VITAMIN B-12) 1,000 MCG TABLET. PO SCH (08:53)
[2020-01-20] MEDS: CITALOPRAM 10 MG TABLET. PO SCH (08:53)
[2020-01-20] MEDS: LACTOBACILLUS RHAMNOSUS GG 1 CAPSULE. PO SCH (08:53)
[2020-01-20] MEDS: AMIODARONE HCL 200 MG TABLET PO SCH (08:53)
[2020-01-20] MEDS: CALCIUM CARBONATE 500 MG TABLET PO SCH (08:53)
[2020-01-20] MEDS: ASPIRIN 325 MG TABLET PO SCH (08:53)
[2020-01-20] MEDS: METOPROLOL TART IMMED RELEASE 25 MG TABLET PO SCH (08:53)
[2020-01-20] MEDS: AZITHROMYCIN 250 MG TABLET. PO SCH (08:53)
[2020-01-20] MEDS: SENNOSIDES 8.6 MG TABLET PO SCH (08:54)
[2020-01-20] MEDS: MEMANTINE 10 MG TABLET. PO SCH (08:54)
--- NOTE | 2020-01-20 10:21 | PDOC ---
CARDIO Progress Notes Date & Time Date of Service DATE: 01/20/20 TIME: 10:02 Time of Evaluation 10:02 Subjective Notes No chest pain, dizziness, diaphoresis, SOA Vitals Vitals Vital Signs Date Time Temp Pulse Resp B/P (MAP) Pulse Ox O2 Delivery O2 Flow Rate FiO2 01/20/20 08:53 61 142/78 01/20/20 08:40 Room Air 01/20/20 06:29 98.2 18 97 Weight Weight [ ] Input and Output I.O. Intake and Output 01/20/20 07:00 Intake Total 740 ml Balance 740 ml Intake Oral 740 ml # Voids 3 # Bowel Movements 3 Laboratory Labs Laboratory Tests Test 01/19/20 05:55 Sodium Level 143 mmol/L (136-145) Potassium Level 3.5 mmol/L (3.5-5.1) Chloride Level 105 mmol/L (98-107) Carbon Dioxide Level 30 mmol/L (21-32) Anion Gap 8 (6-14) Blood Urea Nitrogen 13 mg/dL (7-20) Creatinine 1.0 mg/dL (0.6-1.0) Estimated GFR (Cockcroft-Gault) 52.4 Glucose Level 93 mg/dL (70-99) Calcium Level 9.1 mg/dL (8.5-10.1) Triglycerides Level 141 mg/dL (0-150) Cholesterol Level 302 mg/dL (0-200) LDL Cholesterol, Calculated 230 mg/dL (0-100) VLDL Cholesterol, Calculated 28 mg/dL (0-40) Non-HDL Cholesterol Calculated 258 mg/dL (0-129) HDL Cholesterol 44 mg/dL (40-60) Cholesterol/HDL Ratio 6.0 Thyroid Stimulating Hormone (TSH) 6.808 uIU/mL (0.358-3.740) Microbiology Micro Microbiology 01/17/20 Urine Culture - Final, Complete 01/17/20 Blood Culture - Preliminary, Resulted NO GROWTH AFTER 2 DAYS... Physical Exams Chest: Symmetric Lungs: Clear to Auscultation Heart: RRR Abdomen: Soft N/T Extremities: No Edema Neurology: alert, follow commands Assessment Assessment 1. Altered mental status 2. ? Syncopal episode; event unclear as patient was found down and unable to recall events 3. Bradycardia, sinus. Lowest 42 overnight. No pauses. Appropriated chronotropic response 4. Paroxysmal AFIB; Maintaining SR/SB. On metoprolol for rate control and Amiodarone for rhythm maintenance 5. Accelerated hypertension; now better controlled 6. Orthostatic hypotension 7. Hyperlipidemia 8. Hypothyroidism 9. Dementia Recommendations Continue metoprolol at 25mg BID and monitor for bradycardia Continue Amiodarone for rhythm maintenance ASA therapy. Poor candidate for OAC given fall risk, dementia, comorbidities. Compression stockings Outpatient event monitor has been arranged Follow up in our [place] office with Dr. Guevara March 18 at 1:45pm. Supportive care ABELINO MEYERS APRN Jan 20, 2020 10:21
[2020-01-20 12:55] VITALS: BP 149/60
--- NOTE | 2020-01-20 13:56 | DS ---
DATE OF DISCHARGE: 01/17/2020 HOSPITAL COURSE: The patient is an 89-year-old female patient, a resident at [facility], who apparently was admitted with altered mental status and questionable syncopal episode. While here, she has marked bradycardia and also marked postural hypertension and she was seen in consultation with the Cardiology team. We cut down her metoprolol to 25 mg twice a day and the patient did very well and has had no further episodes. PHYSICAL EXAMINATION: GENERAL: When I saw her this afternoon, she looked well and was clearly in no apparent respiratory distress. No pallor, jaundice, cyanosis or thyromegaly. No jugular venous distention. No limb edema. VITAL SIGNS: Her heart rate was 63, blood pressure was 149/60, temperature was 98, respiratory rate was 16, and oxygen saturation was 95% on room air. HEAD, EYES, EARS, NOSE AND THROAT: Showed normocephalic, atraumatic. NECK: Supple. HEART: Showed normal first and second heart sounds. No gallop or murmur. CHEST: Clear to auscultation. No crepitation or rhonchi. ABDOMEN: Distended, soft, nontender. No guarding or rigidity. No organomegaly. All hernial orifice intact. Bowel sounds normal. NEUROLOGIC: She was demented, but without any obvious lateralizing sign. All cranial nerves intact. She moves extremities without difficulty. She is mostly bedbound, chair bound. She managed to pivot and transfer. Her intake over the last 24 hours was 500, no output was recorded. LABORATORY DATA: Showed a white cell count of 8300, hemoglobin 13, hematocrit 40, MCV 91, and platelet count 267,000. Her serum sodium was 143, potassium 3.5, chloride 105, bicarbonate 30, anion gap of 8, BUN 13, creatinine 1, estimated GFR was 52 mL per minute. Her glucose 93, calcium was 9.1. Her serum triglycerides were 141, total cholesterol 302, LDL was 230, VLDL was 28, HDL was 44, ratio was 6. Her TSH was slightly elevated at 6.808. DISCHARGE MEDICATIONS: She was discharged to a group home facility to continue acetaminophen 650 mg every 6 hours, albuterol sulfate 2.5 mg 3 mL by nebulizer 4 times a day, amiodarone 200 mg once a day, ascorbic acid 500 mg once a day, aspirin 325 mg once a day, azithromycin 250 mg p.o. daily, calcium carbonate 600 mg daily, cholecalciferol (vitamin D) 5000 p.o. daily, citalopram hydrobromide for Celexa 10 mg once a day, cyanocobalamin (vitamin B12) 1000 mcg tablet once a day, dronabinol 2.5 mg twice a day, ferrous sulfate 325 mg once a day, levothyroxine sodium 50 mcg once a day, Lidoderm patch topically once a day, lisinopril 10 mg once a day, magnesium hydroxide for milk of magnesia 30 mL p.o. daily p.r.n. for constipation, magnesium hydroxide 400 mg p.r.n. daily, Namenda 10 mg twice a day, metoprolol tartrate 25 mg twice a day, mirtazapine 22.5 mg daily, moxifloxacin, Vigamox 3 mL 3 times a day, multivitamin 1 tablet once a day, Nevanac 3 mL drops 3 times a day, nifedipine extended release 30 mg once a day, ondansetron for Zofran 4 mg daily, Protonix 40 mg once a day, polyethylene glycol 17 grams daily, prednisolone acetate 1 drop to both eyes 3 times a day, senna 1 tablet daily, tramadol 50 mg every 6 hours. FINAL DISCHARGE DIAGNOSES: 1. Altered mental status. 2. Syncopal episode, likely due to nifedipine and metoprolol. Her nifedipine was discontinued and her metoprolol was cut down to 25 mg twice a day. She also has marked bradycardia again due to beta blockers that was discontinued. She has multiple other medical problems including hypertension, atrial fibrillation, hypothyroidism, anorexia. JOHN MAZARIEGOS MD DR: CRISTO/dayan JOB#: [id number] / [id number]
[2020-01-20 15:19] VITALS: BP 105/76
--- NOTE | 2020-01-20 16:09 | NUR ---
PATIENT IS DISCHARGED TO [facility]. REPORT IS GIVEN TO CHEMA WHALEY. PATIENT LEFT ROOM 109 VIA W/C ACCOMPANIED BY THIS RN. PT BELONGINGS AND DISCHARGE INSTRUCTION GIVEN TO SALESPERSON [employer] TRAINS AND ACCESSORIES. PT IS TAKEN TO [facility] BY THEIR TRANSPORTATION.
== END 2020-01-20 16:05 | DRG 308 ==
LOC: ER 14:52 → 1 SOUTH 19:28
PROVIDERS: ADMIT Internal Medicine; ATTEND Internal Medicine
DX: R00.1 Bradycardia, unspecified (principal); G93.41 Metabolic encephalopathy; Z74.01 Bed confinement status; I95.2 Hypotension due to drugs; D64.9 Anemia, unspecified; E03.9 Hypothyroidism, unspecified; E78.00 Pure hypercholesterolemia, unspecified; E78.5 Hyperlipidemia, unspecified; F03.90 Unspecified dementia, unspecified severity, without behavioral disturbance, psychotic disturbance, mood disturbance, and anxiety; I10 Essential (primary) hypertension; I44.0 Atrioventricular block, first degree; I48.0 Paroxysmal atrial fibrillation; M19.90 Unspecified osteoarthritis, unspecified site; M81.0 Age-related osteoporosis without current pathological fracture; Z82.49 Family history of ischemic heart disease and other diseases of the circulatory system; Z96.641 Presence of right artificial hip joint; R55 Syncope and collapse; Z96.652 Presence of left artificial knee joint; K21.9 Gastro-esophageal reflux disease without esophagitis; Z20.828 Contact with and (suspected) exposure to other viral communicable diseases; Z88.8 Allergy status to other drugs, medicaments and biological substances; Z88.2 Allergy status to sulfonamides; T46.1X5A Adverse effect of calcium-channel blockers, initial encounter; T44.7X5A Adverse effect of beta-adrenoreceptor antagonists, initial encounter; Y92.89 Other specified places as the place of occurrence of the external cause; Z86.718 Personal history of other venous thrombosis and embolism; Z79.01 Long term (current) use of anticoagulants
CPT/HCPCS: 36415; 70450; 70496; 70498; 71045; 72125; 72170; 80048; 80053; 80061; 81001; 82140; 82553; 82947; 83735; 83880; 84443; 84484; 85025; 85610; 85730; 87040; 87086; 93005; J0456; 97116; 97530; 99285-25; U0003-CS

== ENCOUNTER → 2020-03-17 | Outpatient (CLI) | payer MEDICARE, OTHER ==
[~2020-03-17] MED LIST changes: +ACET325T21 PO; +ACET500T68 PO; -AMIO200T4 PO; +AMIO200T6 PO; +AZIT250T6 PO; +METO50TA6 PO; +MIRT15TA3 PO; +NIFE30TA15 PO
--- NOTE | 2020-03-17 13:54 | RAD ---
CT HEAD INDICATION: Reason: MENTAL STATUS CHANGES / Spl. Instructions: / History: COMPARISON: 10/11/2018. Exposure: One or more of the following individualized dose reduction techniques were utilized for this examination: 1. Automated exposure control 2. Adjustment of the mA and/or kV according to patient size 3. Use of iterative reconstruction technique TECHNIQUE: 5 mm contiguous axial images were obtained from the skull base to the vertex in both bone and soft tissue algorithm. FINDINGS: Moderate bilateral periventricular white matter hypodensities likely chronic small vessel ischemic disease. Mild age-related cerebral atrophy changes. No evidence of acute intracranial hemorrhage. No extra-axial fluid collections. No mass effect or midline shift. Ventricular size is appropriate. Basal cisterns are patent. No fractures identified.Larios-white differentiation is preserved.Globes and orbits are within normal limits. Paranasal sinuses and mastoid air cells are clear. IMPRESSION: No acute intracranial findings. Electronically signed by: Marcin Monsalve MD (03/17/2020 1:51 PM) [id number]
== END ==
LOC: CT 12:33
PROVIDERS: ATTEND Internal Medicine
DX: G31.89 Other specified degenerative diseases of nervous system (principal); R41.82 Altered mental status, unspecified
CPT/HCPCS: 70450

== ENCOUNTER 2020-08-31 14:14 | Observation (INO) | payer MEDICARE, OTHER ==
[~2020-08-31] VITALS: Ht 165.1 cm; Wt 57.6 kg
[~2020-08-31 14:14] MED LIST changes: +LISI10TA16 PO; -LISI10TA2 PO; +MIRT-37 PO; -MIRT15TA PO
--- NOTE | 2020-08-31 14:30 | PHYS DOC ---
Past History Past Medical History: A-Fib, Anemia, Dementia, GERD, High Cholesterol, Hypertension, Hypothyroid, Other Past Surgical History: Hip Replacement Alcohol Use: None Drug Use: None General Adult EDM: Chief Complaint: NEURO SYMPTOMS/DEFICITS HPI: HPI: 89-year-old female significant history of hypertension, hyperlipidemia, atrial fibrillation on amiodarone (no anticoagulation), Alzheimer's dementia, who presents from [facility] for the evaluation of altered mentation. Last known normal at 1230 this afternoon. Staff noted that the patient was nonverbal, and staring off, though appeared to be awake. Upon evaluation in the CT suite, the patient had no gross lateralizing findings. The patient appears to be awake, and somewhat follows commands without gross extremity weakness. The patient does not verbalize, therefore, unable to fully assess for aphasia or dysarthria. History is limited secondary to altered mental status. Additional ancillary Hx obtained from son at bedside. Reports 2-3 prior similar episodes in the past of AMS with patient not verbalizing. States has been prev iously attributed to "dehydration". Review of Systems: Review of Systems: History is limited secondary to altered mental status. Allergies: Allergies: Allergies Coded Allergies Type Severity Reaction Last Updated Verified sulfamethoxazole Allergy Severe 07/24/18 Yes trimethoprim Allergy Severe 07/24/18 Yes Penicillins Adverse Reaction Intermediate 05/22/14 Yes Physical Exam: PE: Gen: NAD. Head: NC/AT. Eyes: No scleral icterus. No conjunctival injection. PERRL. Conjugate gaze. ENT: MMM. Neck: Supple. NT. CV: RRR. Peripheral pulses intact. Resp: CTAB. Abd: Soft. NT. ND. MSK: No peripheral cyanosis. No edema. Neuro: Grossly symmetric muscle strength of all 4 extremities. No gross facial asymmetry. Not verbalizing, unable to assess for aphasia or dysarthria, or NIHSS LOC questions. Skin. Warm. Dry. Psych: Flat affect. Current Patient Data: Labs: Laboratory Tests Test 08/31/20 14:39 08/31/20 16:25 White Blood Count 7.0 x10^3/uL (4.0-11.0) Red Blood Count 4.66 x10^6/uL (3.50-5.40) Hemoglobin 13.5 g/dL (12.0-15.5) Hematocrit 40.9 % (36.0-47.0) Mean Corpuscular Volume 88 fL (79-100) Mean Corpuscular Hemoglobin 29 pg (25-35) Mean Corpuscular Hemoglobin Concent 33 g/dL (31-37) Red Cell Distribution Width 14.9 % (11.5-14.5) H Platelet Count 315 x10^3/uL (140-400) Neutrophils (%) (Auto) 61 % (31-73) Lymphocytes (%) (Auto) 26 % (24-48) Monocytes (%) (Auto) 7 % (0-9) Eosinophils (%) (Auto) 4 % (0-3) H Basophils (%) (Auto) 1 % (0-3) Neutrophils # (Auto) 4.3 x10^3uL (1.8-7.7) Lymphocytes # (Auto) 1.8 x10^3/uL (1.0-4.8) Monocytes # (Auto) 0.5 x10^3/uL (0.0-1.1) Eosinophils # (Auto) 0.3 x10^3/uL (0.0-0.7) Basophils # (Auto) 0.1 x10^3/uL (0.0-0.2) Prothrombin Time 9.9 SEC (9.4-11.4) Prothrombin Time INR 1.0 (0.9-1.1) Activated Partial Thromboplast Time 27 SEC (23-33) Sodium Level 140 mmol/L (136-145) Potassium Level 4.5 mmol/L (3.5-5.1) Chloride Level 104 mmol/L (98-107) Carbon Dioxide Level 29 mmol/L (21-32) Anion Gap 7 (6-14) Blood Urea Nitrogen 20 mg/dL (7-20) Creatinine 0.8 mg/dL (0.6-1.0) Estimated GFR (Cockcroft-Gault) 67.7 BUN/Creatinine Ratio 25 (6-20) H Glucose Level 100 mg/dL (70-99) H Calcium Level 9.5 mg/dL (8.5-10.1) Magnesium Level 2.3 mg/dL (1.8-2.4) Total Bilirubin 0.4 mg/dL (0.2-1.0) Aspartate Amino Transferase (AST) 25 U/L (15-37) Alanine Aminotransferase (ALT) 20 U/L (14-59) Alkaline Phosphatase 104 U/L (46-116) Troponin I Quantitative < 0.017 ng/mL (0-0.055) Total Protein 8.1 g/dL (6.4-8.2) Albumin 3.4 g/dL (3.4-5.0) Albumin/Globulin Ratio 0.7 (1.0-1.7) L Urine Collection Type U cath Urine Color Yellow Urine Clarity Cloudy Urine pH 5.5 Urine Specific [place] 1.015 Urine Protein 30 mg/dl (NEG-TRACE) Urine Glucose (UA) Neg mg/dL (NEG) Urine Ketones (Stick) Neg mg/dL (NEG) Urine Blood Large (NEG) Urine Nitrite Pos (NEG) Urine Bilirubin Neg (NEG) Urine Urobilinogen Dipstick 0.2 mg/dL (0.2 mg/dL) Urine Leukocyte Esterase Small (NEG) Urine RBC 11-20 /HPF (0-2) Urine WBC 5-10 /HPF (0-4) Urine Squamous Epithelial Cells Few /LPF Urine Bacteria Mod /HPF (0-FEW) Urine Yeast Present /HPF EKG: EKG: [] Radiology/Procedures: Radiology/Procedures: REASON: AMS PROCEDURE: CT ANGIOGRAPHY HEAD AND NECK CT angiogram of the head and neck with contrast: Reason for examination: Altered mental status. Comparison is made to previous CT of the head without contrast from earlier in the day. Helical images were obtained through the head and neck with intravenous administration of 100 cc Isovue 350 using angiographic protocol. 3-D MIPS reconstruction was performed in sagittal and coronal planes. Exposure: One or more of the following individualized dose reduction techniques were utilized for this examination: 1. Automated exposure control 2. Adjustment of the mA and/or kV according to patient size 3. Use of iterative reconstruction technique. The thoracic aortic arch shows no aneurysmal dilatation or dissection. There is a common origin of the right brachiocephalic artery and left common carotid artery from the arch with some calcification but without significant stenosis. The left subclavian artery arise from the arch in normal position and shows some arteriosclerotic vascular calcification with at least a mild stenosis at its origin. The vertebral arteries arise from their respective subclavian arteries and show no stenoses or occlusions and comparison into a normal caliber basilar artery. The right common carotid artery is tortuous but shows no significant stenosis and there is normal bifurcation into the internal and external carotid arteries and internal carotid artery shows no stenosis or occlusion. The left common carotid artery also shows tortuosity without stenosis or occlusion and normal bifurcation into the internal and external carotid artery. There is some calcification at the carotid bulb with some mild stenosis at the carotid bulb and origin of the left internal carotid artery. The left internal carotid artery shows normal caliber at 5.5 mm proximally but shows focal stenosis at 3 mm as it enters the carotid canal but is normal caliber in the carotid canal at 4.5 mm and intracranially. The left intracranial carotid arteries bifurcate into the left anterior and middle cerebral arteries without stenoses or occlusions and the anterior communicating artery is patent providing flow to the right anterior cerebral artery. The right intracranial carotid artery continues distally as the right middle cerebral artery with no right A1 segment of the right anterior cerebral artery identified. The basilar artery shows flow bilaterally into the superior cerebellar arteries and there is bilateral flow in the posterior cerebral arteries.No aneurysms or arteriovenous malformations are identified. No enhancing masses are seen. No abnormalities of seen at the orbits. The paranasal sinuses and mastoid air cells are clear. No abnormalities of seen at the parotid or submandibular glands. Muscular bundles in the neck appear to be symmetric. No abnormality seen at the epiglottis. The vallecula and piriform sinuses are symmetric. Vocal cords are symmetric. The trachea and visualized portions of the esophagus show no acute abnormalities. The lung apices show some linear and interstitial markings bilaterally which may reflect some atelectasis and interstitial changes. IMPRESSION: Mild stenosis at the origin of the left subclavian artery with calcified plaque. Mild stenosis with calcific plaque at the left carotid bulb and origin of the left internal carotid artery. Stenosis of the left internal carotid artery at 3 mm as it enters the carotid canal but there is normal caliber of the internal carotid artery proximal and distal to this stenosis. No A1 segment of the right anterior cerebral artery. The distal right anterior cerebral artery receives flow from the anterior communicating artery and left anterior cerebral artery. Linear and interstitial type markings in the upper lung fischer bilaterally probably representing some atelectasis and interstitial changes. Electronically signed by: Tiffany Garcia MD (08/31/2020 4:39 PM) [facility] Heart Score: C/O Chest Pain: N/A Risk Factors: Risk Factors: DM, Current or recent (<one month) smoker, HTN, HLP, family history of CAD, obesity. Risk Scores: Score 0 - 3: 2.5% MACE over next 6 weeks - Discharge Home Score 4 - 6: 20.3% MACE over next 6 weeks - Admit for Clinical Observation Score 7 - 10: 72.7% MACE over next 6 weeks - Early Invasive Strategies Course & Med Decision Making: Course & Med Decision Making Pertinent Labs and Imaging studies reviewed. (See chart for details) In summary, 89-year-old female with history of hypertension, Alzheimer's dementia, who presents for evaluation of altered mentation and decreased verbalization earlier today. No gross lateralizing deficits on neurological examination that was able to be obtained. Son states that she has had prior similar episodes in the past related to "dehydration". The patient's lab work is only notable for a minimally elevated BUN/creatinine ratio, receiving IV fluids. Urinalysis was ultimately obtained that showed evidence of UTI, receiving Rocephin. There is also funguria, receiving oral Diflucan [address] angiography shows scattered areas of cerebrovascular disease. No large vessel occlusion. She otherwise remains hemodynamically stable. Denies suspect stroke at this time. She will be admitted for further management. Dragon Disclaimer: Dragon Disclaimer: This electronic medical record was generated, in whole or in part, using a voice recognition dictation system. Departure Departure: Impression: Primary Impression: Altered mental status Additional Impression: UTI (urinary tract infection) Disposition: ADMITTED INPT THIS HOSP Admitting Physician: Etelvina Johnson Condition: STABLE Referrals: ETELVINA JOHNSON MD (PCP) GRISELDA GARCIA DO Aug 31, 2020 14:30
--- NOTE | 2020-08-31 14:36 | RAD ---
CT scan of the head without contrast 08/31/2020 Clinical History: Altered mental status. Code stroke. Technique: Unenhanced, contiguous, 5 mm axial sections were obtained through the head. One or more of the following individualized dose reduction techniques were utilized for this study: 1. Automated exposure control. 2. Adjustment of the mA and/or kV according to patient size. 3. Use of iterative reconstruction technique. Findings: Comparison study is dated 01/07/2020. There is generalized parenchymal atrophy. Areas of decreased attenuation are seen within the perivent ricular and subcortical white matter of both cerebral hemispheres consistent with areas of small vess el ischemic disease. Old areas of lacunar infarction is seen involving the left basal ganglia region, unchanged. No acute parenchymal abnormality is seen. No extra-axial fluid collection is noted. No sk ull fracture is seen. Impression: No acute intracranial abnormality is seen. This result was called to Dr. Sam. FOR INTERNAL CODING PURPOSES RESULT CODE: (C) Electronically signed by: Morgan Dougherty MD (08/31/2020 2:34 PM) [id number]
[2020-08-31] MEDS ORDERED: IOHEXOL 350 MG/ML 100 ML VIAL. IV ONE (14:45)
[2020-08-31 15:07] LABS: BASO # 0.1 x10^3/uL (0.0-0.2); BASO % 1 % (0-3); EOS # 0.3 x10^3/uL (0.0-0.7); EOS % 4 % (0-3); HEMATOCRIT 40.9 % (36.0-47.0); HEMOGLOBIN 13.5 g/dL (12.0-15.5); LYMPH # 1.8 x10^3/uL (1.0-4.8); LYMPH % 26 % (24-48); MEAN CORPUSCULAR HEMOGLOBIN 29 pg (25-35); MEAN CORPUSCULAR HGB CONC 33 g/dL (31-37); MEAN CORPUSCULAR VOLUME 88 fL (79-100); MONO # 0.5 x10^3/uL (0.0-1.1); MONO % 7 % (0-9); NEUT # 4.3 x10^3uL (1.8-7.7); NEUT % 61 % (31-73); PLATELET COUNT 315 x10^3/uL (140-400); RED BLOOD COUNT 4.66 x10^6/uL (3.50-5.40); RED CELL DISTRIBUTION WIDTH 14.9 % (11.5-14.5)
[2020-08-31 15:17] LABS: CALCIUM 9.5 mg/dL (8.5-10.1); CREATININE 0.8 mg/dL (0.6-1.0); GFR 67.7; POTASSIUM 4.5 mmol/L (3.5-5.1)
[2020-08-31 15:29] LABS: ALBUMIN 3.4 g/dL (3.4-5.0); ALBUMIN/GLOBULIN RATIO 0.7 (1.0-1.7); MAGNESIUM 2.3 mg/dL (1.8-2.4); TOTAL BILIRUBIN 0.4 mg/dL (0.2-1.0); TOTAL PROTEIN 8.1 g/dL (6.4-8.2)
--- NOTE | 2020-08-31 16:20 | EKG ---
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
--- NOTE | 2020-08-31 16:41 | RAD ---
CT angiogram of the head and neck with contrast: Reason for examination: Altered mental status. Comparison is made to previous CT of the head without contrast from earlier in the day. Helical images were obtained through the head and neck with intravenous administration of 100 cc Isov ue 350 using angiographic protocol. 3-D MIPS reconstruction was performed in sagittal and coronal maría christiano. Exposure: One or more of the following individualized dose reduction techniques were utilized for thi s examination: 1. Automated exposure control 2. Adjustment of the mA and/or kV according to patient size 3. Use of iterative reconstruction technique. The thoracic aortic arch shows no aneurysmal dilatation or dissection. There is a common origin of th e right brachiocephalic artery and left common carotid artery from the arch with some calcification b ut without significant stenosis. The left subclavian artery arise from the arch in normal position an d shows some arteriosclerotic vascular calcification with at least a mild stenosis at its origin. The vertebral arteries arise from their respective subclavian arteries and show no stenoses or occlusion s and comparison into a normal caliber basilar artery. The right common carotid artery is tortuous bu t shows no significant stenosis and there is normal bifurcation into the internal and external caroti d arteries and internal carotid artery shows no stenosis or occlusion. The left common carotid artery also shows tortuosity without stenosis or occlusion and normal bifurcation into the internal and ext ernal carotid artery. There is some calcification at the carotid bulb with some mild stenosis at the carotid bulb and origin of the left internal carotid artery. The left internal carotid artery shows n ormal caliber at 5.5 mm proximally but shows focal stenosis at 3 mm as it enters the carotid canal bu t is normal caliber in the carotid canal at 4.5 mm and intracranially. The left intracranial carotid arteries bifurcate into the left anterior and middle cerebral arteries without stenoses or occlusions and the anterior communicating artery is patent providing flow to the right anterior cerebral artery . The right intracranial carotid artery continues distally as the right middle cerebral artery with n o right A1 segment of the right anterior cerebral artery identified. The basilar artery shows flow bi laterally into the superior cerebellar arteries and there is bilateral flow in the posterior cerebral arteries.No aneurysms or arteriovenous malformations are identified. No enhancing masses are seen. No abnormalities of seen at the orbits. The paranasal sinuses and mastoid air cells are clear. No abn ormalities of seen at the parotid or submandibular glands. Muscular bundles in the neck appear to be symmetric. No abnormality seen at the epiglottis. The vallecula and piriform sinuses are symmetric. V ocal cords are symmetric. The trachea and visualized portions of the esophagus show no acute abnormal ities. The lung apices show some linear and interstitial markings bilaterally which may reflect some atelectasis and interstitial changes. IMPRESSION: Mild stenosis at the origin of the left subclavian artery with calcified plaque. Mild stenosis with calcific plaque at the left carotid bulb and origin of the left internal carotid a rtery. Stenosis of the left internal carotid artery at 3 mm as it enters the carotid canal but there is norm al caliber of the internal carotid artery proximal and distal to this stenosis. No A1 segment of the right anterior cerebral artery. The distal right anterior cerebral artery receiv es flow from the anterior communicating artery and left anterior cerebral artery. Linear and interstitial type markings in the upper lung fischer bilaterally probably representing some atelectasis and interstitial changes. Electronically signed by: Tiffany Garcia MD (08/31/2020 4:39 PM) [facility]
[2020-08-31] MEDS ORDERED: IV NORMAL SALINE 500ML 500 ML ONE (16:48)
[2020-08-31 16:51] LABS: BILIRUBIN,URINE NEG (NEG); CLARITY,URINE CLOUDY; COLOR,URINE YELLOW; GLUCOSE,URINE NEG (NEG)
[2020-08-31 16:52] LABS: BACTERIA,URINE MOD /HPF (0-FEW); NITRITE,URINE POS (NEG); SQUAMOUS EPITHELIAL CELL,UR FEW /LPF; UROBILINOGEN,URINE 0.2 mg/dL (0.2 mg/dL); YEAST,URINE PRESENT /HPF
[2020-08-31] MEDS ORDERED: FLUCONAZOLE 100 MG TABLET. PO ONE (17:00)
[2020-08-31] MEDS ORDERED: ONDANSETRON PF 4 MG/2 ML VIAL. IVP PRN (17:45)
[2020-08-31] MEDS ORDERED: IV NORMAL SALINE 500ML 500 ML IV ONE (18:00)
[2020-08-31] MEDS ORDERED: IV NORMAL SALINE 50ML 50 ML ONE (18:15)
[2020-08-31] MEDS ORDERED: cefTRIAXone SODIUM 1 GM VIAL ONE (18:15)
[2020-08-31 18:52] VITALS: BP 165/52
[2020-08-31] MEDS ORDERED: METH114C3 TP (19:16)
[2020-08-31] MEDS ORDERED: LOSA25TA11 PO (19:16)
[2020-08-31] MEDS ORDERED: AMLO10TA4 PO (19:16)
[2020-08-31 22:44] VITALS: BP 154/54
[2020-09-01 05:27] VITALS: BP 134/65
[2020-09-01] MEDS ORDERED: ACETAMINOPHEN 325 MG TABLET PO PRN (07:30)
[2020-09-01] MEDS ORDERED: LEVOTHYROXINE 50 MCG TABLET PO SCH (08:00)
--- NOTE | 2020-09-01 08:16 | HP ---
ADMIT DATE: 08/31/2020 ATTENDING PHYSICIAN: Dr. Johnson. CHIEF COMPLAINT: Altered mentation. HISTORY OF PRESENT ILLNESS: The patient is an 89-year-old female, pen[facility] resident from [place]. She was evaluated in the ED yesterday with altered mentation. She was sent here because she was fairly unresponsive. She has profound underlying dementia. Workup in the ED showed no acute strokes. She had what appears to be a urinary tract infection. She was admitted then with altered mentation and UTI. PAST MEDICAL HISTORY: Gleaned from the [facility] records, she has Alzheimer disease, profound, paroxysmal atrial fibrillation, frequent UTIs, anemia of chronic disease, hypothyroidism, on replacement, osteoarthritis, osteoporosis, degenerative arthritis, agitation related to Alzheimer dementia and gastroesophageal reflux disease along with essential hypertension. CURRENT MEDICINES: Include amiodarone, amlodipine, losartan, Tylenol, Remeron, calcium, magnesium, MiraLax, senna, Synthroid, and vitamin B12. ALLERGIES: Noted. PENICILLIN, SULFAMETHOXAZOLE, BACTRIM, reaction is unclear. SOCIAL HISTORY: She is a nonsmoker, nondrinker. FAMILY HISTORY: Unobtainable. REVIEW OF SYSTEMS: Unobtainable due to the patient's confusion. PHYSICAL EXAMINATION: GENERAL: When I saw her, this is an elderly, confused female who is bedridden. INITIAL VITAL SIGNS: Showed a blood pressure 134/65 mmHg, oxygen saturation 94% on room air, pulse is 62 and regular, temperature 97.7 degrees Fahrenheit. HEENT: Head is without trauma. Pupils are reactive. Sclerae nonicteric. Oropharynx is clear. NECK: Supple, no bruits identified. LUNGS: Shallow respirations. CARDIOVASCULAR: Showed regular heart tones. No gallops. ABDOMEN: Soft, no guarding, rebound tenderness. EXTREMITIES: Without edema. NEUROLOGIC: Profoundly confused, bedridden. She does not comprehend any questions. SKIN: Warm and dry. PERTINENT LABORATORY STUDIES: The hemoglobin is 13.5 g/dL, white count 7000. Sodium was 140, creatinine 0.8 mg percent, nonfasting blood sugar 100. Troponins were negative. Urinalysis showed a specimen that had a small amount of leukocyte esterase, few bacteria. I am not aware if cultures are pending. IMAGING STUDIES: The obligatory CT of the head showed no new changes. Generalized parenchymal atrophy, small vessel ischemic disease and areas of lacunar infarcts. Head CTA showed no significant stenosis that is hemodynamically relevant. ASSESSMENT: 1. An 89-year-old female, penit[facility]iary resident with altered mentation. 2. Urinary tract infection, clinically. 3. Profound dementia. I am not clear what is her baseline. 4. Essential hypertension. 5. Paroxysmal atrial fibrillation. 6. Generalized debilitation. 7. Hypothyroidism, on replacement. PLAN: 1. The home meds were reviewed and most continued. 2. Empiric antibiotics. 3. I shall track down whether the Emergency Room did urine and blood cultures. 4. She is a full code here on the report. I will try to contact the power of assistant prosecuting attorney to ascertain her true code status. Her prognosis is guarded. AMOS JOHNSON MD DR: PIPO/dayan JOB#: [id number] / [id number] JOHN Palmer MD
[2020-09-01] MEDS ORDERED: POLYETHYLENE GLYCOL 3350 17 GM PACKET. PO SCH (09:00)
[2020-09-01] MEDS ORDERED: amLODIPine BESYLATE 10 MG TABLET PO SCH (09:00)
[2020-09-01] MEDS ORDERED: AMIODARONE HCL 200 MG TABLET. PO SCH (09:00)
[2020-09-01] MEDS ORDERED: CYANOCOBALAMIN (VITAMIN B-12) 1,000 MCG TABLET. PO SCH (09:00)
[2020-09-01] MEDS ORDERED: LOSARTAN 25 MG TABLET. PO SCH (09:00)
[2020-09-01 10:40] VITALS: BP 125/69
--- NOTE | 2020-09-01 13:13 | DS ---
DATE OF DISCHARGE: 09/01/2020 ATTENDING PHYSICIAN: Dr. Johnson. FINAL DISCHARGE DIAGNOSES: 1. Altered mentation, resolved. 2. Urinary tract infection. 3. Profound dementia. 4. Essential hypertension. 5. Paroxysmal atrial fibrillation. 6. Hypothyroidism, on replacement. 7. Generalized debilitation. HISTORY AND PHYSICAL: The patient has been a shelter resident at [place] for the last 2 years. She was sent to the ED with decreased mentation and unresponsiveness. PHYSICAL EXAMINATION: Please see the dictated note. PERTINENT LABORATORY AND X-RAY STUDIES: The obligatory CT of the head yesterday showed no evidence of acute strokes. There is a parenchymal atrophy identified. CT angiogram showed no evidence of significant hemodynamic stenosis. Hemoglobin 13.5 g/dL with white count of 7000. Electrolytes all within normal range. Cardiac enzymes are negative. Creatinine 0.8 mg percent. COURSE IN THE HOSPITAL: The patient was admitted. She did not have a urine culture. UA was done. She was diagnosed with urinary tract infection, started on empiric antibiotics. By the time I saw her the next day, she was doing better. She had no new complaints. No obvious distress. She was back to her baseline. I had a long discussion with the daughter and the ornament maker hand. Arrangement was then made for her to go back to [facility] for further treatment and evaluation. She received Rocephin here and I recommended 6 more days of cephalexin 250 p.o. t.i.d. I am aware of the PENICILLIN ALLERGY. She has tolerated cephalosporins well. Her other home meds are unchanged. She will continue her Tylenol, amiodarone, amlodipine, calcium, vitamin B12, Synthroid, losartan, methyl salicylate cream, Remeron 15 mg at bedtime and MiraLax 17 g daily. Therefore, she was discharged from our hospital in stable condition with explicit record and followup care. I did have a discussion with daughter and power of supervising librarian to clarify her code status. She is a full code and they need to be aware of what that means of the consequences. She will discuss this further end of life care issues and consideration of a DNR status with the rest of her family. In the meantime, she was discharged from our hospital in stable condition with explicit instructions and followup care. AMOS JOHNSON MD DR: PIPO/dayan JOB#: [id number] / [id number] JOHN Palmer MD
[2020-09-01] MEDS ORDERED: MIRTAZAPINE 15 MG TABLET PO SCH (21:00)
== END 2020-09-01 13:50 | disposition still patient (30) ==
LOC: ER 14:14 → INTOOBSV 17:31 → 1 SOUTH 17:31
PROVIDERS: ADMIT Internal Medicine; ATTEND Internal Medicine
DX: R41.82 Altered mental status, unspecified (principal); N39.0 Urinary tract infection, site not specified; F02.80 Dementia in other diseases classified elsewhere, unspecified severity, without behavioral disturbance, psychotic disturbance, mood disturbance, and anxiety; I10 Essential (primary) hypertension; I48.0 Paroxysmal atrial fibrillation; I65.22 Occlusion and stenosis of left carotid artery; R53.81 Other malaise; E03.9 Hypothyroidism, unspecified; D63.8 Anemia in other chronic diseases classified elsewhere; E78.5 Hyperlipidemia, unspecified; E78.00 Pure hypercholesterolemia, unspecified; E86.0 Dehydration; G30.9 Alzheimer's disease, unspecified; J98.11 Atelectasis; M81.0 Age-related osteoporosis without current pathological fracture; Z79.899 Other long term (current) drug therapy; Z87.440 Personal history of urinary (tract) infections; Z96.649 Presence of unspecified artificial hip joint
CPT/HCPCS: 36415; 70450; 70496; 70498; 80053; 81001; 83735; 84484; 85025; 85610; 85730; 93005; 96365; 99285; G0378; J0696; J7040; P9612; Q9967; G0379